=== PATIENT | female | born 1990 | race African-American/Black ===

== ENCOUNTER 2016-03-24 20:07 | Emergency (ER) | payer SELFPAY ==
--- NOTE | 2016-03-24 20:32 | ER Document Report ---
ED Medical Screen (RME) - General Stated Complaint: CHEST PAIN Time seen by provider: 20:30 Mode of Arrival: Ambulatory Information source: Patient Notes: 25-year-old female presents to ED for epigastric pain radiating to back 2 days. Patient states usually goes away but this time. States she's been having urinary frequency with an odor. She states last time she was here she had a UTI. Last menstrual period 03/18/2016 I have greeted and performed a rapid initial assessment of this patient. A comprehensive ED assessment and evaluation of the patient, analysis of test results and completion of medical decision making process will be conducted by an additional ED providers. TRAVEL OUTSIDE OF THE [place] IN LAST 30 DAYS: No - Related Data Allergies/Adverse Reactions: Penicillins Allergy (Verified 01/13/16 07:17) Past Medical History GI Medical History: Reports: Hx Gastroesophageal Reflux Disease Past Surgical History: Reports: Hx Tubal Ligation - Immunizations Immunizations up to date: Yes Hx Diphtheria, Pertussis, Tetanus Vaccination: Yes
[2016-03-24] MEDS ORDERED: ONDANSETRON 4 MG TAB.RAPDIS PO ONE (20:33)
[2016-03-24 20:34] VITALS: BP 114/68
[2016-03-24] MEDS ORDERED: ACETAMINOPHEN 325 MG TABLET ONE (20:39)
[2016-03-24] MEDS ORDERED: ACETAMINOPHEN 325 MG TABLET PO ONE (20:40)
[2016-03-24 21:30] LABS: ABSOLUTE BASOPHILS # (AUTO) 0.1 10^3/uL (0.0-0.2); ABSOLUTE EOSINOPHILS # (AUTO) 0.2 10^3/uL (0.0-0.6); ABSOLUTE LYMPHOCYTES (AUTO) 1.4 10^3/uL (0.5-4.7); ABSOLUTE MONOCYTES (AUTO) 0.6 10^3/uL (0.1-1.4); ABSOLUTE NEUT (AUTO) 6.3 10^3/uL (1.7-8.2); BASOPHILS % (AUTO) 0.6 % (0-2); EOSINOPHILS % (AUTO) 2.6 % (0-6); HEMATOCRIT 33.2 % (36.0-47.0); HEMOGLOBIN 10.3 g/dL (12.0-15.5); HGB HCT DIFFERENCE -2.3; LYMPHOCYTES % (AUTO) 16.4 % (13-45); MEAN CORPUSCULAR HEMOGLOBIN 21.2 pg (27.0-33.4); MEAN CORPUSCULAR HGB CONC 31.2 g/dL (32.0-36.0); MEAN CORPUSCULAR VOLUME 68 fl (80-97); MONOCYTES % (AUTO) 6.7 % (3-13); RED BLOOD COUNT 4.89 10^6/uL (3.72-5.28); RED CELL DISTRIBUTION WIDTH 17.7 % (11.5-14.0); SEGMENTED NEUTROPHILS % (AUTO) 73.7 % (42-78); WHITE BLOOD COUNT 8.6 10^3/uL (4.0-10.5)
[2016-03-24 21:37] LABS: APPEARANCE,URINE SLIGHTLY-CLOUDY; BILIRUBIN,URINE NEGATIVE (NEGATIVE); GLUCOSE, URINE NEGATIVE (NEGATIVE); KETONES,URINE NEGATIVE (NEGATIVE); LEUKOCYTE ESTERASE,URINE TRACE (NEGATIVE); NITRITE,URINE NEGATIVE (NEGATIVE); PROTEIN,URINE NEGATIVE (NEGATIVE); URINE SPECIFIC GRAVITY 1.011; UROBILINOGEN,URINE NEGATIVE mg/dL (<2.0)
[2016-03-24 21:50] LABS: ALANINE AMINOTRANSFERASE 29 U/L (9-52); ALKALINE PHOSPHATASE 76 U/L (38-126); ANION GAP 12 (5-19); ASPARTATE AMINO TRANSFERASE 27 U/L (14-36); BILIRUBIN,TOTAL 0.5 mg/dL (0.2-1.3); BLOOD UREA NITROGEN 13 mg/dL (7-20); CALCIUM 9.5 mg/dL (8.4-10.2); CARBON DIOXIDE 26 mmol/L (22-30); CHLORIDE 103 mmol/L (98-107); CREATININE RESULT 0.96 mg/dL (0.52-1.25); GLUCOSE 85 mg/dL (75-110); LIPASE 48.1 U/L (23-300); POTASSIUM 3.8 mmol/L (3.6-5.0); SODIUM 140.9 mmol/L (137-145); TOTAL PROTEIN 7.6 g/dL (6.3-8.2)
[2016-03-24 22:59] LABS: CHLAM PCR NOT DETECTED (NOT DETECT)
--- NOTE | 2016-03-25 15:17 | EKG REPORT ---
SEVERITY:- BORDERLINE ECG - SINUS TACHYCARDIA VENTRICULAR PREMATURE COMPLEX BORDERLINE T ABNORMALITIES, ANTERIOR LEADS : Confirmed by: Elvira Galindo MD 25-Mar-2016 15:16:15
== END 2016-03-24 21:57 | disposition left against medical advice (07) ==
LOC: ER 20:07
DX: R10.13 Epigastric pain (principal); R35.0 Frequency of micturition; Z87.19 Personal history of other diseases of the digestive system; Z98.51 Tubal ligation status; Z53.20 Procedure and treatment not carried out because of patient's decision for unspecified reasons
CPT/HCPCS: 36415; 80053; 81001; 83690; 84703; 85025; 87491; 87591; 93005; 93010; 99281

== ENCOUNTER 2016-06-11 11:47 | Emergency (ER) | payer SELFPAY ==
--- NOTE | 2016-06-11 12:26 | ER Document Report ---
ED Medical Screen (RME) - General TRAVEL OUTSIDE OF THE [place] IN LAST 30 DAYS: No <DAVIDA ORTEGA - Last Filed: 06/11/16 12:25> <NONA MENA - Last Filed: 06/11/16 13:36> - General Chief Complaint: Flank Pain Stated Complaint: FLANK PAIN Notes: Patient says that she has a feeling that her bladder is full and she is going frequently. She's had this problem off and on for the past couple of years. She was worked up at [facility] in February and diagnosed with lupus nephritis and is to be referred to [facility] for evaluation and care. Patient says she's been having these bladder symptoms for the past couple of days this time. Patient says she's also having severe back pains also. No fever. No vomiting or diarrhea. Patient has had her tubes tied. (DAVIDA ORTEGA) - Related Data Allergies/Adverse Reactions: Penicillins Allergy (Verified 01/13/16 07:17) Past Medical History Renal/ Medical History: Denies: Hx Peritoneal Dialysis GI Medical History: Reports: Hx Gastroesophageal Reflux Disease Past Surgical History: Reports: Hx Tubal Ligation - Immunizations Immunizations up to date: Yes Hx Diphtheria, Pertussis, Tetanus Vaccination: Yes <DAVIDA ORTEGA - Last Filed: 06/11/16 12:25> Course <DAVIDA ORTEGA - Last Filed: 06/11/16 12:25> - Laboratory Result Diagrams: 06/11/16 12:37 06/11/16 12:37 <NONA MENA - Last Filed: 06/11/16 13:36> - Re-evaluation Re-evalutation: 06/11/16 13:34 The urine shows too numerous to count WBCs. Protein is only 30. Patient's history of lupus kidney disease is suspect given the urine protein is only 30, she is not on prednisone or Imuran or any other agent to reduce autoimmune inflammation in the kidneys. Additionally she reports she gets this pain in her kidneys that they give her pain medicine for when she gets the bladder infections. On exam the pain is in the lower lumbar muscles and easily reproduced with palpation of those muscles. She reports she is usually treated with an antibiotic that she takes twice daily , does not know the name of the antibiotic. (NONA MENA) - Vital Signs Vital signs: Temp Pulse Resp BP Pulse Ox 98.3 F 99 16 122/80 99 06/11/16 11:50 06/11/16 11:50 06/11/16 11:50 06/11/16 11:50 06/11/16 11:50 - Laboratory Laboratory results interpreted by me: 06/11/16 06/11/16 12:37 12:37 Hgb 9.5 L Hct 30.0 L MCV 66 L MCH 21.0 L MCHC 31.7 L RDW 18.3 H Urine Protein 30 H Urine Blood MODERATE H Ur Leukocyte Esterase LARGE H
--- NOTE | 2016-06-11 12:38 | ER Document Report ---
ED GI/ - General Mode of Arrival: Ambulatory Information source: Patient TRAVEL OUTSIDE OF THE [place] IN LAST 30 DAYS: No - HPI Patient complains to provider of: Dysuria Onset: Other - Approximately 4 days ago Timing/Duration: Gradual, Persistent Location: Low back Associated symptoms: Dysuria, Radiates to back, Urinary frequency Similar symptoms previously: Yes <MINI ARANGO - Last Filed: 06/11/16 12:49> <NONA MENA - Last Filed: 06/11/16 14:34> - General Chief Complaint: Flank Pain Stated Complaint: FLANK PAIN Notes: Patient is a 25-year-old female presenting to the emergency department concerned of dysuria onset approximately 4 days ago. Patient states she has history of UTIs and kidney infections over the past 2 years. Patient states that doctors normally give her an antibiotic that she takes twice a day and pain killers for her back pain. Patient reports back pain and frequency, but unable to initiate "the stream". Patient also states that she has recently been diagnosed with lupus. (MINI ARANGO) - Related Data Allergies/Adverse Reactions: Penicillins Allergy (Verified 01/13/16 07:17) Past Medical History - General Information source: Patient - Social History Smoking Status: Unknown if Ever Smoked Family History: Reviewed & Not Pertinent, DM Patient has suicidal ideation: No Patient has homicidal ideation: No GI Medical History: Reports: Hx Gastroesophageal Reflux Disease Past Surgical History: Reports: Hx Tubal Ligation - Immunizations Immunizations up to date: Yes Hx Diphtheria, Pertussis, Tetanus Vaccination: Yes <MINI ARANGO - Last Filed: 06/11/16 12:49> <NONA MENA - Last Filed: 06/11/16 14:34> - Medical History Notes: Lupus Dx'd 2017 per Patient (MINI ARANGO) Review of Systems - Review of Systems Constitutional: No symptoms reported EENT: No symptoms reported Cardiovascular: No symptoms reported Respiratory: No symptoms reported Gastrointestinal: No symptoms reported Genitourinary: See HPI, Dysuria, Frequency Female Genitourinary: No symptoms reported Musculoskeletal: See HPI, Back pain - Lower back Skin: No symptoms reported Hematologic/Lymphatic: No symptoms reported Neurological/Psychological: No symptoms reported -: Yes All other systems reviewed and negative <MINI ARANGO - Last Filed: 06/11/16 12:49> Physical Exam - Vital signs Interpretation: Normal - General General appearance: Appears well, Alert - HEENT Head: Normocephalic, Atraumatic Eyes: Normal Pupils: PERRL - Respiratory Respiratory status: No respiratory distress Chest status: Nontender Breath sounds: Normal Chest palpation: Normal - Cardiovascular Rhythm: Regular Heart sounds: Normal auscultation Murmur: No - Abdominal Inspection: Normal Distension: No distension Bowel sounds: Normal Tenderness: Nontender Organomegaly: No organomegaly - Back Back: Tender - Tenderness over lower lumbar and sacral muscles - Extremities General upper extremity: Normal inspection, Nontender General lower extremity: Normal inspection, Nontender - Neurological Neuro grossly intact: Yes Cognition: Normal Schurz Coma Scale Eye Opening: Spontaneous Schurz Coma Scale Verbal: Oriented Schurz Coma Scale Motor: Obeys Commands Schurz Coma Scale Total: 15 Speech: Normal - Psychological Associated symptoms: Normal affect, Normal mood - Skin Skin Temperature: Warm Skin Moisture: Dry Skin Color: Normal <MINI ARANGO - Last Filed: 06/11/16 12:49> Course - Laboratory Result Diagrams: 06/11/16 12:37 06/11/16 12:37 <MINI ARANGO - Last Filed: 06/11/16 12:49> - Laboratory Result Diagrams: 06/11/16 12:37 06/11/16 12:37 <NONA MENA - Last Filed: 06/11/16 14:34> - Vital Signs Vital signs: Temp Pulse Resp BP Pulse Ox 98.3 F 99 16 122/80 99 06/11/16 11:50 06/11/16 11:50 06/11/16 11:50 06/11/16 11:50 06/11/16 11:50 - Laboratory Laboratory results interpreted by ne: 06/11/16 06/11/16 12:37 12:37 Hgb 9.5 L Hct 30.0 L MCV 66 L MCH 21.0 L MCHC 31.7 L RDW 18.3 H Urine Protein 30 H Urine Blood MODERATE H Ur Leukocyte Esterase LARGE H Discharge <MINI ARANGO - Last Filed: 06/11/16 12:49> <NONA MENA - Last Filed: 06/11/16 14:34> - Discharge Clinical Impression: Urinary tract infection Qualifiers: Urinary tract infection type: acute cystitis Hematuria presence: with hematuria Qualified Code(s): N30.01 - Acute cystitis with hematuria Low back pain Qualifiers: Chronicity: acute Back pain laterality: bilateral Sciatica presence: without sciatica Qualified Code(s): M54.5 - Low back pain Condition: Stable Disposition: HOME, SELF-CARE Additional Instructions: Urinary Tract Infection: Your evaluation indicates that you have a urinary tract infection. This is due to germs growing in the bladder. This is a common problem. This infection usually responds quickly to antibiotics. Your antibiotic should be taken exactly as prescribed. Drink plenty of fluids -- three to four quarts a day. Occasionally, a bladder anesthetic will be prescribed to help stop the feeling of urgency until the antibiotic has a chance to clear the infection. This may cause your urine to be dark orange. Certain urine infections require a culture. If the doctor obtained a culture, the results will be back in two days. You should call to see if a change in treatment is needed. A repeat urinalysis after you finish treatment is often recommended. The physician will let you know if further testing is required. Call the doctor if you develop fever, chills, flank pain, inability to urinate, or blood in the urine. Low Back Pain: Three out of every four people will have an episode of disabling back pain during their lifetime. Most commonly the pain is due to straining of the muscles and ligaments in the low back. Usual treatment includes: (1) Rest on a firm surface. Avoid lying on your stomach. (2) Ice pack the painful area. After a few days, gentle heat may be used intermittently to relax the area, or ice packs can be continued. (3) Medication may be needed -- muscle relaxers and antiinflammatory medicines are commonly used. (4) As the back improves, exercises are prescribed to strengthen the back and abdominal muscles. Your doctor will advise you on the proper care for your back at each stage in your recovery. You may be better in a few days -- or healing may take several weeks. If new symptoms of a "herniated disc" (radiation of pain, numbness, or tingling down the back of the leg or weakness in the leg) occur, you should be re-examined. Further testing may be necessary. TAKE THE MEDICATION PRESCRIBED. DRINK PLENTY OF FLUIDS. FOLLOW UP WITH YOUR DOCTOR THIS WEEK IF NOT IMPROVING. RETURN TO THE EMERGENCY ROOM IF ANY NEW OR WORSENING SYMPTOMS. Prescriptions: Ciprofloxacin HCl [Cipro 250 mg Tablet] 1 tab PO BID #10 tab Tramadol HCl 50 mg PO QID PRN #20 tablet PRN Reason: for low back pain Scribe Attestation: 06/11/16 14:34 I personally performed the services described in the documentation, reviewed and edited the documentation which was dictated to the scribe in my presence, and it accurately records my words and actions. (NONA MENA) Scribe Documentation - Scribe Written by Chris:: Mini Arango 06/11/2016 1238 acting as scribe for :: Stanton <MINI ARANGO - Last Filed: 06/11/16 12:49>
[2016-06-11 12:52] LABS: ABSOLUTE BASOPHILS # (AUTO) 0.1 10^3/uL (0.0-0.2); ABSOLUTE EOSINOPHILS # (AUTO) 0.2 10^3/uL (0.0-0.6); ABSOLUTE LYMPHOCYTES (AUTO) 1.9 10^3/uL (0.5-4.7); ABSOLUTE MONOCYTES (AUTO) 0.5 10^3/uL (0.1-1.4); ABSOLUTE NEUT (AUTO) 6.9 10^3/uL (1.7-8.2); BASOPHILS % (AUTO) 0.6 % (0-2); EOSINOPHILS % (AUTO) 1.9 % (0-6); HEMOGLOBIN 9.5 g/dL (12.0-15.5); HGB HCT DIFFERENCE -1.5; LYMPHOCYTES % (AUTO) 19.4 % (13-45); MEAN CORPUSCULAR HGB CONC 31.7 g/dL (32.0-36.0); MEAN CORPUSCULAR VOLUME 66 fl (80-97); MONOCYTES % (AUTO) 5.7 % (3-13); RED BLOOD COUNT 4.53 10^6/uL (3.72-5.28); RED CELL DISTRIBUTION WIDTH 18.3 % (11.5-14.0); SEGMENTED NEUTROPHILS % (AUTO) 72.4 % (42-78); WHITE BLOOD COUNT 9.6 10^3/uL (4.0-10.5)
[2016-06-11 12:59] LABS: AMORPHOUS SEDIMENT,URINE TRACE /HPF; APPEARANCE,URINE CLOUDY; BILIRUBIN,URINE NEGATIVE (NEGATIVE); GLUCOSE, URINE NEGATIVE (NEGATIVE); KETONES,URINE NEGATIVE (NEGATIVE); LEUKOCYTE ESTERASE,URINE LARGE (NEGATIVE); NITRITE,URINE NEGATIVE (NEGATIVE); PROTEIN,URINE 30 mg/dL (NEGATIVE); URINE SPECIFIC GRAVITY 1.015; UROBILINOGEN,URINE NEGATIVE mg/dL (<2.0)
[2016-06-11 13:46] LABS: ALANINE AMINOTRANSFERASE 27 U/L (9-52); ALBUMIN 4.3 g/dL (3.5-5.0); ALKALINE PHOSPHATASE 78 U/L (38-126); ANION GAP 11 (5-19); ASPARTATE AMINO TRANSFERASE 20 U/L (14-36); BILIRUBIN,DIRECT 0.3 mg/dL (0.0-0.4); BILIRUBIN,TOTAL 0.8 mg/dL (0.2-1.3); BLOOD UREA NITROGEN 14 mg/dL (7-20); CALCIUM 9.5 mg/dL (8.4-10.2); CARBON DIOXIDE 25 mmol/L (22-30); CHLORIDE 106 mmol/L (98-107); CREATININE RESULT 0.73 mg/dL (0.52-1.25); GLUCOSE 101 mg/dL (75-110); POTASSIUM 3.9 mmol/L (3.6-5.0); SODIUM 141.9 mmol/L (137-145); TOTAL PROTEIN 7.5 g/dL (6.3-8.2)
[2016-06-11] MEDS ORDERED: CIPROFLOXACIN HCL 500 MG TABLET PO ONE (14:12)
[2016-06-11] MEDS ORDERED: HYDROCODONE/ACETAMINOPHEN 5-325 MG TABLET PO ONE (14:12)
[2016-06-11] MEDS ORDERED: PHENAZOPYRIDINE HCL 200 MG TABLET PO ONE (14:31)
[2016-06-11 14:47] VITALS: BP 123/79
== END 2016-06-11 14:47 | disposition home or self-care (01) ==
LOC: ER 11:47
DX: N30.01 Acute cystitis with hematuria (principal); M54.5 Low back pain; R30.0 Dysuria; R35.0 Frequency of micturition; Z88.0 Allergy status to penicillin
CPT/HCPCS: 99283; 36415; 87086; 83690; 85025; 81025; 80053; 81001; J3490

== ENCOUNTER 2016-09-29 23:45 | Emergency (ER) | payer SELFPAY ==
[2016-09-30] MEDS ORDERED: NORMAL SALINE 1000 ML 1,000 ML IV ONE (00:50)
[2016-09-30] MEDS ORDERED: ONDANSETRON HCL INJ/PF 4 MG/2 ML SDV IV ONE (00:50)
[2016-09-30] MEDS ORDERED: LIDOCAINE 2% VISCOUS SOLN 20 ML UDCUP PO ONE (00:58)
[2016-09-30] MEDS ORDERED: FAMOTIDINE 20 MG TABLET PO ONE (00:58)
[2016-09-30] MEDS ORDERED: METOCLOPRAMIDE HCL ORAL SOLN 10 MG/10 ML UDCUP PO ONE (00:58)
[2016-09-30] MEDS ORDERED: MAG HYDROX/AL HYDROX/SIMETH SUSP 30 ML UDCUP PO ONE (00:58)
--- NOTE | 2016-09-30 00:59 | ER Document Report ---
ED General - General Chief Complaint: Epigastric Pain Stated Complaint: BREATHING DIFFICULTY Time Seen by Provider: 09/30/16 00:24 Notes: Patient is a 25-year-old female with past medical history of lupus, gastroesophageal reflux disease who presents with multiple episodes of vomiting and epigastric abdominal pain approximately 4 hours after eating sushi. Her sister who is at the bedside at the exact same food as her did not have similar reaction. Patient states that her epigastric abdominal pain with a dull, aching , throbbing pain that is mostly resolved at this time. That pain did start after she had approximately 4 episodes of nonbilious vomiting. Denies a history of similar symptoms in the past. She has not seen her primary care doctor regarding today's concerns. Nothing improves or worsens her symptoms. TRAVEL OUTSIDE OF THE [place] IN LAST 30 DAYS: No - Related Data Allergies/Adverse Reactions: Penicillins Allergy (Verified 09/30/16 00:00) Past Medical History - General Information source: Patient - Social History Smoking Status: Never Smoker Frequency of alcohol use: None Drug Abuse: None Lives with: Spouse/Significant other Family History: Reviewed & Not Pertinent, DM Patient has suicidal ideation: No Patient has homicidal ideation: No Renal/ Medical History: Denies: Hx Peritoneal Dialysis GI Medical History: Reports: Hx Gastroesophageal Reflux Disease Past Surgical History: Reports: Hx Tubal Ligation - Immunizations Immunizations up to date: Yes Hx Diphtheria, Pertussis, Tetanus Vaccination: Yes Review of Systems - Review of Systems Notes: Constitutional: Negative for fever. HENT: Negative for sore throat. Eyes: Negative for visual changes. Cardiovascular: Negative for chest pain. Respiratory: Negative for shortness of breath. Gastrointestinal: Positive for epigastric abdominal pain and vomiting Genitourinary: Negative for dysuria. Musculoskeletal: Negative for back pain. Skin: Negative for rash. Neurological: Negative for headaches, weakness or numbness. 10 point ROS negative except as marked above and in HPI. Physical Exam - Vital signs Vitals: Temp Pulse Resp BP Pulse Ox 98 F 78 20 128/81 H 100 09/29/16 23:56 09/29/16 23:56 09/29/16 23:56 09/29/16 23:56 09/29/16 23:56 Interpretation: Normal Notes: PHYSICAL EXAMINATION: GENERAL: Well-appearing, well-nourished and in no acute distress. HEAD: Atraumatic, normocephalic. EYES: Pupils equal round and reactive to light, extraocular movements intact, sclera anicteric, conjunctiva are normal. ENT: nares patent, oropharynx clear without exudates. Moderately dry mucous membranes. NECK: Normal range of motion, supple without lymphadenopathy LUNGS: Breath sounds clear to auscultation bilaterally and equal. No wheezes rales or rhonchi. HEART: Regular rate and rhythm without murmurs ABDOMEN: Soft, mild epigastric abdominal tenderness to palpation otherwise no focal tenderness, normoactive bowel sounds. No guarding, no rebound. No masses appreciated. EXTREMITIES: Normal range of motion, no pitting or edema. No cyanosis. NEUROLOGICAL: No focal neurological deficits. Moves all extremities spontaneously and on command. PSYCH: Normal mood, normal affect. SKIN: Warm, Dry, normal turgor, no rashes or lesions noted. Course - Re-evaluation Re-evalutation: 09/30/16 00:58 Patient presents with epigastric abdominal pain with associated vomiting after eating sushi. Patient states that the pain did start after 4 episodes of vomiting. Patient has no focal abdominal tenderness on examination. Lipase is normal. No LFT changes. Based on history and exam, I do not suspect ACS, pulmonary embolus, SBO, mesenteric ischemia, acute pancreatitis, biliary pathology, or an abdominal aortic dissection. Patient has had improvement of symptoms here with a GI cocktail. At this time will discharge with return precautions and follow-up recommendations. Verbal discharge instructions given a the bedside and opportunity for questions given. Medication warnings reviewed. Patient is in agreement with this plan and has verbalized understanding of return precautions and the need for primary care follow-up in the next 24-72 hours. - Vital Signs Vital signs: Temp Pulse Resp BP Pulse Ox 98 F 78 20 128/81 H 100 09/29/16 23:56 09/29/16 23:56 09/29/16 23:56 09/29/16 23:56 09/29/16 23:56 - Laboratory Result Diagrams: 09/30/16 00:43 Laboratory results interpreted by me: 09/30/16 00:43 Potassium 3.5 L Chloride 109 H Discharge - Discharge Clinical Impression: Epigastric abdominal pain Vomiting Qualifiers: Vomiting type: unspecified Vomiting Intractability: non-intractable Nausea presence: with nausea Qualified Code(s): R11.2 - Nausea with vomiting, unspecified Condition: Good Disposition: HOME, SELF-CARE Additional Instructions: You have been seen in the Emergency Department (ED) today for nausea and vomiting. Your work up today has not shown a clear cause for your symptoms. You have been prescribed Zofran; please use as prescribed as needed for your nausea. Follow up with your doctor as soon as possible regarding today's emergent visit and your symptoms of nausea. Return to the Emergency Department (ED) if you develop abdominal pain, bloody vomiting, bloody diarrhea, if you are unable to tolerate fluids due to vomiting , or if you develop other symptoms that concern you.
[2016-09-30 01:20] LABS: ALANINE AMINOTRANSFERASE 37 U/L (9-52); ALBUMIN 4.2 g/dL (3.5-5.0); ALKALINE PHOSPHATASE 89 U/L (38-126); ANION GAP 11 (5-19); ASPARTATE AMINO TRANSFERASE 20 U/L (14-36); BILIRUBIN,DIRECT 0.3 mg/dL (0.0-0.4); BILIRUBIN,TOTAL 0.4 mg/dL (0.2-1.3); BLOOD UREA NITROGEN 11 mg/dL (7-20); CALCIUM 9.3 mg/dL (8.4-10.2); CARBON DIOXIDE 22 mmol/L (22-30); CHLORIDE 109 mmol/L (98-107); CREATININE RESULT 0.78 mg/dL (0.52-1.25); GLUCOSE 96 mg/dL (75-110); POTASSIUM 3.5 mmol/L (3.6-5.0); SODIUM 141.7 mmol/L (137-145); TOTAL PROTEIN 7.5 g/dL (6.3-8.2)
[2016-09-30] MEDS ORDERED: ONDANSETRON ODT 4 MG TAB (6 TAB/DSPK) PO PRN (01:52)
[2016-09-30 02:23] VITALS: BP 122/90
--- NOTE | 2016-09-30 09:56 | EKG REPORT ---
SEVERITY:- NORMAL ECG - SINUS RHYTHM : Confirmed by: Devonte Layton MD 30-Sep-2016 09:55:53
== END 2016-09-30 02:09 | disposition home or self-care (01) ==
LOC: ER 23:45
DX: R10.13 Epigastric pain (principal); R11.2 Nausea with vomiting, unspecified; Z88.0 Allergy status to penicillin; Z87.19 Personal history of other diseases of the digestive system; Z98.51 Tubal ligation status
CPT/HCPCS: 93005; 99284; 96361; 96374; 36415; 83690; 84703; 80053; 93010; J3490; J2405; J7030

== ENCOUNTER 2016-11-22 21:52 | Emergency (ER) | payer SELFPAY ==
[2016-11-22 22:25] VITALS: BP 107/67
== END 2016-11-22 23:00 | disposition left against medical advice (07) ==
LOC: ER 21:52
DX: Z53.21 Procedure and treatment not carried out due to patient leaving prior to being seen by health care provider (principal)

== ENCOUNTER 2017-01-23 13:50 | Observation (INO) | payer MEDICAID ==
[~2017-01-23 13:50] MED LIST: SUCCINYLCHOLINE CHLORIDE INJ 200 MG/10 ML VIAL ONE
[2017-01-23] MEDS ORDERED: NORMAL SALINE 1000 ML 1,000 ML IV ONE (15:07)
[2017-01-23] MEDS ORDERED: MORPHINE SULFATE 10 MG/ML INJ IV ONE ×2 (15:09→18:26)
--- NOTE | 2017-01-23 15:13 | ER Document Report ---
HPI - HPI Patient complains to provider of: Perirectal abscess Onset: Other - 5 days Onset/Duration: Worse Quality of pain: Sharp Pain Level: 4 Context: Patient states that she thought initially that she might have a hemorrhoid she was having pain in the rectal area. Patient was treating with [id number] hemorrhoid creams and Tucks pads. Patient states a family member advised her that she may have an abscess. Patient does report subjective fevers at home. Patient reports some constipation with last bowel movement 3 days ago. Patient complains of rectal pain with standing or sitting. Associated Symptoms: Fever, Other - Rectal tenderness Exacerbated by: Sitting, Standing, Movement, Walking Relieved by: Denies Similar symptoms previously: No Recently seen / treated by doctor: No - ROS ROS below otherwise negative: Yes Systems Reviewed and Negative: Yes All other systems reviewed and negative - CONSTITUTIONAL Constitutional: REPORTS: Fever, Chills - REPRODUCTIVE Reproductive: DENIES: : - DERM Skin Color: Normal Notes: abscess Past Medical History - General Information source: Patient - Social History Smoking Status: Current Some Day Smoker Smoking Education Provided: Yes Frequency of alcohol use: None Drug Abuse: None Occupation: none Lives with: Family Family History: Reviewed & Not Pertinent, DM Patient has suicidal ideation: No Patient has homicidal ideation: No - Medical History Medical History: Other - lupus Renal/ Medical History: Denies: Hx Peritoneal Dialysis GI Medical History: Reports: Hx Gastroesophageal Reflux Disease Past Surgical History: Reports: Hx Tubal Ligation - Immunizations Immunizations up to date: Yes Hx Diphtheria, Pertussis, Tetanus Vaccination: Yes Vertical Provider Document - CONSTITUTIONAL Agree With Documented VS: Yes Exam Limitations: No Limitations General Appearance: WD/WN, No Apparent Distress - INFECTION CONTROL TRAVEL OUTSIDE OF THE [place] IN LAST 30 DAYS: No - HEENT HEENT: Atraumatic, Normocephalic - NECK Neck: Normal Inspection, Supple - RESPIRATORY Respiratory: Breath Sounds Normal, No Respiratory Distress O2 Sat by Pulse Oximetry: 100 - CARDIOVASCULAR Cardiovascular: Regular Rhythm, No Murmur, Tachycardia - GI/ABDOMEN Notes: Patient with perianal abscess, 1.5 cm subtle swelling to the perianal area that is mildly erythematous and exquisitely tender with palpation. - BACK Back: Normal Inspection - MUSCULOSKELETAL/EXTREMETIES Musculoskeletal/Extremeties: MAEW - NEURO Level of Consciousness: Awake, Alert, Appropriate Motor/Sensory: No Motor Deficit - DERM Integumentary: Warm, Dry Course - Re-evaluation Re-evalutation: 01/23/17 15:09 dr hernandes consulted and agrees to evaluate pt 01/23/17 15:32 Dr. Hernandes to bedside for exam, recommends giving patient IV Cipro and will plan to take patient to the operating room for drainage of perianal abscess. 01/23/17 16:34 Patient complains of epigastric tenderness. Patient advised that she needs to remain n.p.o., additional medication ordered. RN advised the patient's pain complaints so that they may relate this to the surgeon. - Vital Signs Vital signs: Temp Pulse Resp BP Pulse Ox 98.1 F 123 H 20 132/75 H 100 01/23/17 13:53 01/23/17 13:53 01/23/17 13:53 01/23/17 13:53 01/23/17 13:53 - Laboratory Result Diagrams: 01/23/17 15:39 01/23/17 15:39 Laboratory results interpreted by me: 01/23/17 16:56 Labs- Entire Visit 01/23/17 01/23/17 01/23/17 15:39 15:39 15:39 WBC 12.7 H RBC 4.77 Hgb 9.8 L Hct 30.8 L MCV 65 L MCH 20.4 L MCHC 31.6 L RDW 18.4 H Plt Count 317 Seg Neutrophils % 81.0 H Lymphocytes % 13.2 Monocytes % 3.9 Eosinophils % 1.6 Basophils % 0.3 Absolute Neutrophils 10.3 H Absolute Lymphocytes 1.7 Absolute Monocytes 0.5 Absolute Eosinophils 0.2 Absolute Basophils 0.0 Large Platelets PRESENT Platelet Comment ADEQUATE Polychromasia SLIGHT Hypochromasia 1+ Poikilocytosis 1+ Anisocytosis 1+ Microcytosis 3+ Tear Drop Cells SLIGHT Ovalocytes 1+ Schistocytes SLIGHT Sodium 143.3 Potassium 4.2 Chloride 106 Carbon Dioxide 23 Anion Gap 14 BUN 14 Creatinine 0.74 Est GFR ( Amer) > 60 Est GFR (Non-Af Amer) > 60 Glucose 81 Calcium 9.9 Total Bilirubin 0.4 Direct Bilirubin 0.3 Neonat Total Bilirubin Not Reportable Neonat Direct Bilirubin Not Reportable Neonat Indirect Bili Not Reportable AST 24 ALT 31 Alkaline Phosphatase 100 Total Protein 7.7 Albumin 4.6 Serum HCG, Qual NEGATIVE Discharge - Discharge Clinical Impression: Perianal abscess Condition: Stable Disposition: ADMITTED OBSERVATION Admitting Provider: Surgicalist Unit Admitted: Medical Floor
[2017-01-23] MEDS ORDERED: CIPROFLOXACIN 400 MG/D5W RTU 400 MG/200 ML RTUPB IV ONE (15:30)
[2017-01-23 16:07] LABS: ABSOLUTE EOSINOPHILS # (AUTO) 0.2 10^3/uL (0.0-0.6); ABSOLUTE LYMPHOCYTES (AUTO) 1.7 10^3/uL (0.5-4.7); ABSOLUTE MONOCYTES (AUTO) 0.5 10^3/uL (0.1-1.4); ABSOLUTE NEUT (AUTO) 10.3 10^3/uL (1.7-8.2); BASOPHILS % (AUTO) 0.3 % (0-2); EOSINOPHILS % (AUTO) 1.6 % (0-6); HEMATOCRIT 30.8 % (36.0-47.0); HEMOGLOBIN 9.8 g/dL (12.0-15.5); HGB HCT DIFFERENCE -1.4; LYMPHOCYTES % (AUTO) 13.2 % (13-45); MEAN CORPUSCULAR HEMOGLOBIN 20.4 pg (27.0-33.4); MEAN CORPUSCULAR HGB CONC 31.6 g/dL (32.0-36.0); MONOCYTES % (AUTO) 3.9 % (3-13); RED BLOOD COUNT 4.77 10^6/uL (3.72-5.28); RED CELL DISTRIBUTION WIDTH 18.4 % (11.5-14.0); WHITE BLOOD COUNT 12.7 10^3/uL (4.0-10.5)
--- NOTE | 2017-01-23 16:18 | HISTORY AND PHYSICAL E ---
History and Physical NAME: MINI OLIVER : 1990 AGE: 26Y ADMITTED: 01/23/2017 ROOM: ED36 CHIEF COMPLAINT: Left perirectal pains. HISTORY OF PRESENT ILLNESS: This is a 26-year-old female complaining of pains along the left perirectal area for the past 5 days. Initially, she thought it was just hemorrhoids and then went to the Emergency Room today where she was noted to have swelling and tenderness at the left perianal area, most likely developing into an abscess. The patient denies any nausea, vomiting. The patient claims she has been constipated most of her life. She has some anorexia since Sunday. Denies any fever nor chills. PAST MEDICAL HISTORY: Diagnosed to have lupus nephritis about a year ago, but not on any medications. She said her urine had protein and some white blood cells. PAST SURGICAL HISTORY: Unremarkable. SOCIAL HISTORY: Smokes a pack a day. Denies alcohol or drug use. ALLERGIES: PENICILLIN. FAMILY HISTORY: Both parents are alive and well. An aunt has a history of lupus. REVIEW OF SYSTEMS: As in HPI. Denies any weight loss, diarrhea. Positive for constipation. No chest pain, shortness of breath, cough. Admits to having occasional dizziness. Has been constipated most of her life according to her. Denies any easy bruisability or lymphadenopathy. No visual or hearing problems. Rest of the systems are unremarkable. GI as in HPI. PHYSICAL EXAMINATION: GENERAL: Well-developed, well-nourished 26-year-old female, alert and oriented, complaining of left perirectal pains. HEENT: Neck is supple. No thyromegaly. LUNGS: Clear. HEART: Regular sinus rhythm. ABDOMEN: Soft, nontender. EXTREMITIES: No edema. RECTAL EXAM: The patient has reddish swollen swelling with marked tenderness in the left perirectal area. IMPRESSION: Left perirectal abscess, possible fistula in ano. PLAN: 1. Patient to keep n.p.o. and start IV fluids. 2. Start IV antibiotics with Cipro. 3. Patient for incision and drainage of perirectal abscess, possible fistulotomy. DICTATING PHYSICIAN: MANA JUAREZ M.D. [id number] PHY#: [id number] ID: [id number] JOB#: [id number] ACCT: [id number] cc:Junior VEGAS MD
[2017-01-23 16:30] LABS: ALANINE AMINOTRANSFERASE 31 U/L (9-52); ALBUMIN 4.6 g/dL (3.5-5.0); ALKALINE PHOSPHATASE 100 U/L (38-126); ANION GAP 14 (5-19); ASPARTATE AMINO TRANSFERASE 24 U/L (14-36); BILIRUBIN,DIRECT 0.3 mg/dL (0.0-0.4); BILIRUBIN,TOTAL 0.4 mg/dL (0.2-1.3); BLOOD UREA NITROGEN 14 mg/dL (7-20); CALCIUM 9.9 mg/dL (8.4-10.2); CARBON DIOXIDE 23 mmol/L (22-30); CHLORIDE 106 mmol/L (98-107); CREATININE RESULT 0.74 mg/dL (0.52-1.25); GLUCOSE 81 mg/dL (75-110); POTASSIUM 4.2 mmol/L (3.6-5.0); SODIUM 143.3 mmol/L (137-145); TOTAL PROTEIN 7.7 g/dL (6.3-8.2)
[2017-01-23 16:32] LABS: ANISOCYTOSIS 1+; HYPOCHROMASIA 1+; MICROCYTOSIS 3+; OVALOCYTES 1+; POIKILOCYTOSIS 1+; POLYCHROMASIA SLIGHT; SCHISTOCYTES SLIGHT; TEAR DROP CELLS SLIGHT
[2017-01-23 16:33] LABS: MEAN CORPUSCULAR VOLUME 65 fl (80-97)
[2017-01-23] MEDS ORDERED: FAMOTIDINE INJ/PF 20 MG/2 ML SDV IV ONE (16:34)
[2017-01-23] MEDS ORDERED: NORMAL SALINE 1000 ML 1,000 ML IV PRN ×2 (20:04→22:59)
[2017-01-23] MEDS ORDERED: INFLUENZA ADLT QUAD (36MOS+) 2017-18 VAC 0.5 ML SYR IM PRN (20:23)
[2017-01-23] MEDS ORDERED: HYDROMORPHONE HCL INJ/PF 2 MG/ML AMPULE IV ONE (21:45)
[2017-01-23] MEDS ORDERED: ACETAMINOPHEN 100 ML IV ONE (22:07)
[2017-01-23] MEDS ORDERED: FENTANYL CITRATE INJ/PF 100 MCG/2 ML AMPUL ONE (22:07)
[2017-01-23] MEDS ORDERED: PROPOFOL INJ 200 MG/20 ML VIAL IV ONE (22:07)
[2017-01-23] MEDS ORDERED: MIDAZOLAM 2 MG/2 ML INJ ONE (22:07)
[2017-01-23] MEDS ORDERED: LIDOCAINE 0.5% INJ-PF (5 MG/ML) 50 ML SDV ONE (22:12)
[2017-01-23] MEDS ORDERED: PROMETHAZINE HCL INJ 25 MG/1 ML VIAL IV PRN ×2 (23:00)
[2017-01-23] MEDS ORDERED: FENTANYL CITRATE INJ/PF 100 MCG/2 ML AMPUL IV PRN ×3 (23:00)
[2017-01-23] MEDS ORDERED: OXYCODONE-ACETAMINOPHEN 5-325 MG TABLET PO PRN ×2 (23:00)
[2017-01-23] MEDS ORDERED: DIPHENHYDRAMINE HCL 50 MG/ML VIAL IV PRN (23:00)
[2017-01-23] MEDS ORDERED: MEPERIDINE HCL/PF INJ 25 MG/1 ML DISP.SYRIN IV PRN (23:00)
[2017-01-23] MEDS ORDERED: MORPHINE SULFATE 10 MG/ML INJ IV PRN (23:00)
[2017-01-23] MEDS ORDERED: METRONIDAZOLE 500 MG/NS RTU 250 MG in CONTAINER,EMPTY 1 EACH IV SCH (23:15)
[2017-01-23] MEDS ORDERED: METRONIDAZOLE 500 MG/NS RTU 250 MG in CONTAINER,EMPTY 1 EACH IV ONE (23:30)
--- NOTE | 2017-01-23 23:33 | OPERATIVE REPORT E ---
Operative Report NAME: MINI OLIVER : 1990 AGE: 26Y DATE OF SURGERY: 01/23/2017 ROOM: 208 PREOPERATIVE DIAGNOSIS: Left perianal abscess. POSTOPERATIVE DIAGNOSIS: Left perianal abscess. OPERATION: Incision and drainage of left perianal abscess. SURGEON: MANA JUAREZ M.D. ANESTHESIA: Local MAC. INDICATION: This is a 26-year-old female complaining of pain in left perianal area for the past week. She initially thought it was hemorrhoids but she went to the emergency room today because of increasing pains. She was noted to have a bulging at the left perianal area with obvious abscess. The patient was given IV antibiotics in the ER. DESCRIPTION OF PROCEDURE: After adequate general anesthesia, the patient was placed in the lithotomy position and the perineal area prepped and draped in the usual sterile fashion. Xylocaine 1% was injected over the palpated swelling on the left perianal area. A 1 cm incision was then made and a gush of yellowish drainage noted. Cultures were then obtained. The abscess defect was then probed with a hemostat and enlarged bluntly. Further palpation of the cavity was then performed with the index finger and no other areas of tunneling noted. No evidence of fistula in the rectal mucosa noted and primarily with palpation. The abscess appears to be around internal and external sphincter. No further pus could be extruded by pressing pressure through the rectal mucosa towards the sphincter muscles, though the sphincter muscles appear to be a little bit more prominent compared to the right side. At any rate, the area was then irrigated with saline solution. The area was subsequently packed with 1/4 inch Iodoform gauze. Sterile dressings placed over the operative site. Needle, instruments and sponge counts were all correct. Estimated blood loss about 20 mL. Patient then brought to the recovery room in satisfactory condition. DICTATING PHYSICIAN: MANA JUAREZ M.D. [id number] PHY#: [id number] ID: [id number] JOB#: [id number] ACCT: [id number] cc:MANA JUAREZ M.D. >
[2017-01-24] MEDS: ONDANSETRON HCL INJ/PF 4 MG/2 ML SDV IV PRN ×3 (00:23→12:07)
[2017-01-24] MEDS ORDERED: METRONIDAZOLE 500 MG/NS RTU 200 ML IV ONE (01:10)
[2017-01-24] MEDS: METRONIDAZOLE 500 MG/NS RTU 100 ML IV SCH ×3 (02:08→17:50)
[2017-01-24] MEDS: HYDROMORPHONE HCL INJ/PF 2 MG/ML AMPULE IV PRN ×3 (05:42→17:50)
[2017-01-24] MEDS ORDERED: METRONIDAZOLE 500 MG/NS RTU 250 MG in CONTAINER,EMPTY 1 EACH IV SCH (06:00)
[2017-01-24] MEDS ORDERED: CIPROFLOXACIN 400 MG/D5W RTU 400 MG/200 ML RTUPB IV SCH (10:00)
[2017-01-24 14:39] LABS: PATH REVIEW PATHOLOGIST REVIEWED
[2017-01-24] MEDS ORDERED: DIPHENHYDRAMINE HCL 50 MG/ML VIAL INJ ONE (14:45)
[2017-01-24] MEDS ORDERED: FLUCONAZOLE 100 MG TABLET PO ONE (19:00)
[2017-01-24 19:15] VITALS: BP 97/68
--- NOTE | 2017-01-24 20:03 | DISCHARGE SUMMARY E ---
Discharge Summary NAME: MINI OLIVER : 1990 AGE: 26Y ADMITTED: 01/23/2017 DISCHARGED: 01/24/2017 FINAL DIAGNOSIS: Left perianal abscess. PROCEDURE DONE: Incision and drainage of left perianal abscess 01/23/17, surgeon Dr. Hernandes. HOSPITAL COURSE: This is a 26-year-old female who has been complaining of pains along the left perianal area for about 5 days, and was noted to have an abscess and this was eventually drained in the OR on 01/23/17. A packing was placed. The patient started on IV antibiotics. The packing was removed on 01/24/17 and a light packing placed. Minimal drainage noted. The packing will be removed in the surgical clinic this Sunday01/26/2017. IN the meantime the patient claims she has some whitish vaginal discharge, likely yeast infection and she was given a dose of Diflucan 200 mg p.o. 1 time. The patient also given a prescription for Percocet 5/325 mg 1 every 6 hours p.r.n. for pain for a total of 12 pills and Cipro 500 mg p.o. b.i.d. for about 5 days. DICTATING PHYSICIAN: MANA HERNANDES M.D. [id number] PHY#: [id number] ID: [id number] JOB#: [id number] ACCT: [id number] cc:MANA HERNANDES M.D. >
== END 2017-01-24 20:05 | disposition home or self-care (01) ==
LOC: ER 13:50 → EH 15:43 → 2N 19:45
PROVIDERS: ATTEND Surgery
PROC: 0D9Q0ZX Drainage of Anus, Open Approach, Diagnostic (ICD-10-PCS; principal; 2017-01-23 19:00)
DX: K61.0 Anal abscess (principal); N89.8 Other specified noninflammatory disorders of vagina; R63.0 Anorexia; M32.14 Glomerular disease in systemic lupus erythematosus; F17.210 Nicotine dependence, cigarettes, uncomplicated; K59.00 Constipation, unspecified
CPT/HCPCS: 96376; 99284; 96375; 96365; 36415; 87040; 87070; 87205; 84703; 85025; 87075; 87077; 80053; 87186; 46050; G0378 ×2; A6266 ×2; J2250; J3010; J3490; J2270; J1170; J0330; J2405; J7030; J2704; J0744 ×2; S0028; J0131; 902

== ENCOUNTER 2017-08-13 16:21 | Emergency (ER) | payer SELFPAY | END 2017-08-13 19:23 | disposition left against medical advice (07) | LOC: ER 16:21 | DX: Z53.21 Procedure and treatment not carried out due to patient leaving prior to being seen by health care provider (principal) ==

== ENCOUNTER 2017-09-01 23:35 | Emergency (ER) | payer SELFPAY ==
[2017-09-01 23:47] VITALS: BP 121/82
[2017-09-02 01:10] LABS: ABSOLUTE EOSINOPHILS # (AUTO) 0.2 10^3/uL (0.0-0.6); ABSOLUTE LYMPHOCYTES (AUTO) 2.4 10^3/uL (0.5-4.7); ABSOLUTE MONOCYTES (AUTO) 0.5 10^3/uL (0.1-1.4); ABSOLUTE NEUT (AUTO) 8.6 10^3/uL (1.7-8.2); BASOPHILS % (AUTO) 0.4 % (0-2); EOSINOPHILS % (AUTO) 1.9 % (0-6); HEMOGLOBIN 10.5 g/dL (12.0-15.5); LYMPHOCYTES % (AUTO) 20.2 % (13-45); MEAN CORPUSCULAR HGB CONC 31.7 g/dL (32.0-36.0); MEAN CORPUSCULAR VOLUME 66 fl (80-97); MONOCYTES % (AUTO) 4.4 % (3-13); PLATELET COUNT 302 10^3/uL (150-450); RED BLOOD COUNT 4.98 10^6/uL (3.72-5.28); RED CELL DISTRIBUTION WIDTH 19.2 % (11.5-14.0); SEGMENTED NEUTROPHILS % (AUTO) 73.1 % (42-78); TOTAL CELLS COUNTED % (AUTO) 100 %; WHITE BLOOD COUNT 11.7 10^3/uL (4.0-10.5)
[2017-09-02 01:26] LABS: ALANINE AMINOTRANSFERASE 28 U/L (9-52); ALBUMIN 4.4 g/dL (3.5-5.0); ALKALINE PHOSPHATASE 91 U/L (38-126); ANION GAP 10 (5-19); ASPARTATE AMINO TRANSFERASE 25 U/L (14-36); BILIRUBIN,DIRECT 0.3 mg/dL (0.0-0.4); BILIRUBIN,TOTAL 0.3 mg/dL (0.2-1.3); BLOOD UREA NITROGEN 12 mg/dL (7-20); CALCIUM 9.5 mg/dL (8.4-10.2); CARBON DIOXIDE 23 mmol/L (22-30); CHLORIDE 108 mmol/L (98-107); GLUCOSE 99 mg/dL (75-110); LIPASE 38.2 U/L (23-300); POTASSIUM 4.3 mmol/L (3.6-5.0); SODIUM 140.7 mmol/L (137-145); TOTAL PROTEIN 8.3 g/dL (6.3-8.2)
[2017-09-02] MEDS ORDERED: KETOROLAC TROMETHAMINE 60 MG/2 ML SDV IM ONE (01:27)
--- NOTE | 2017-09-02 01:28 | ER Document Report ---
ED General - General Chief Complaint: Abdominal Pain Stated Complaint: ABDOMINAL PAIN Time Seen by Provider: 09/02/17 00:01 Notes: Patient is a 26-year-old female with a past medical history of lupus not currently warranting any treatment, prior surgical history of tubal ligation who presents with 2-3 days of intermittent lower abdominal cramping. She describes this as an intermittent, cramping, moderate to severe pain. Nothing improves or worsens this pain. She states that this does feel somewhat similar to prior menstrual period cramps that she has had in the past which have been much more intense and she had a tubal ligation several years ago. She denies any vaginal bleeding or vaginal discharge. No dysuria. No fever or constitutional symptoms. She has not seen her general doctor regarding today's concerns. TRAVEL OUTSIDE OF THE [place] IN LAST 30 DAYS: No - Related Data Allergies/Adverse Reactions: Penicillins Allergy (Verified 01/23/17 13:53) Past Medical History - General Information source: Patient - Social History Smoking Status: Current Every Day Smoker Chew tobacco use (# tins/day): No Frequency of alcohol use: Social Drug Abuse: None Lives with: Spouse/Significant other Family History: Reviewed & Not Pertinent, DM Patient has suicidal ideation: No Patient has homicidal ideation: No Neurological Medical History: Reports: Hx Migraine Renal/ Medical History: Denies: Hx Peritoneal Dialysis GI Medical History: Reports: Hx Gastroesophageal Reflux Disease Musculoskeltal Medical History: Reports Hx Arthritis - RA Psychiatric Medical History: Reports: Hx Bipolar Disorder, Hx Depression - gestational Past Surgical History: Reports: Hx Tubal Ligation - Immunizations Immunizations up to date: Yes Hx Diphtheria, Pertussis, Tetanus Vaccination: Yes Review of Systems - Review of Systems Notes: Constitutional: Negative for fever. HENT: Negative for sore throat. Eyes: Negative for visual changes. Cardiovascular: Negative for chest pain. Respiratory: Negative for shortness of breath. Gastrointestinal: Positive for lower abdominal pain Genitourinary: Negative for dysuria. Musculoskeletal: Negative for back pain. Skin: Negative for rash. Neurological: Negative for headaches, weakness or numbness. 10 point ROS negative except as marked above and in HPI. Physical Exam - Vital signs Vitals: Temp Pulse Resp BP Pulse Ox 98.1 F 103 H 18 121/82 100 09/01/17 23:45 09/01/17 23:45 09/01/17 23:45 09/01/17 23:45 09/01/17 23:45 Interpretation: Tachycardic - Resolved at the time of my assessment Notes: PHYSICAL EXAMINATION: GENERAL: Well-appearing, well-nourished and in no acute distress. HEAD: Atraumatic, normocephalic. EYES: Pupils equal round and reactive to light, extraocular movements intact, sclera anicteric, conjunctiva are normal. ENT: nares patent, oropharynx clear without exudates. Moist mucous membranes. NECK: Normal range of motion, supple without lymphadenopathy LUNGS: Breath sounds clear to auscultation bilaterally and equal. No wheezes rales or rhonchi. HEART: Regular rate and rhythm without murmurs ABDOMEN: Soft, minimal suprapubic and bilateral adnexal tenderness otherwise no localized areas of tenderness normoactive bowel sounds. No guarding, no rebound. No masses appreciated. EXTREMITIES: Normal range of motion, no pitting or edema. No cyanosis. NEUROLOGICAL: No focal neurological deficits. Moves all extremities spontaneously and on command. PSYCH: Normal mood, normal affect. SKIN: Warm, Dry, normal turgor, no rashes or lesions noted. Course - Re-evaluation Re-evalutation: 09/02/17 01:26 Patient presents with 3 days of suprapubic and bilateral adnexal pain that is described as a cramping pain. Patient otherwise well in appearance, vitals within normal limits, no distress. She has no focal right lower quadrant tenderness to suggest an acute appendicitis. She denies vaginal discharge or constitutional symptoms and no vital sign abnormalities to suggest a pelvic inflammatory disease. She is status post tubal ligation making unlikely although will verify with labs. A urinary tract infection particular given that the patient is complaining of some bilateral flank tenderness would be most consistent with her presentation. Alternatives would also consider beginning of a menstrual cycle as she notes that she has had severe menstrual cramping ever since she had a tubal ligation. Very low clinical suspicion for a bowel perforation, mesenteric ischemia, and the patient has no upper abdominal tenderness to suggest an acute pancreatitis or biliary pathology. Will await labs and reassess the patient. 09/02/17 02:05 Labs completely unremarkable. Patient's pain is improved she is actually eating [employer] when I going to reassess her. She states her pain is improved after receiving Toradol. Suspect possible onset of her menstrual cycle although I have emphasized the patient that I am uncertain of her diagnosis and have reviewed the need to return immediately to the emergency department for new or worsening symptoms. At this time will discharge with return precautions and follow-up recommendations. Verbal discharge instructions given a the bedside and opportunity for questions given. Medication warnings reviewed. Patient is in agreement with this plan and has verbalized understanding of return precautions and the need for primary care follow-up in the next 24-72 hours. - Vital Signs Vital signs: Temp Pulse Resp BP Pulse Ox 98.1 F 103 H 18 121/82 100 09/01/17 23:45 09/01/17 23:45 09/01/17 23:45 09/01/17 23:45 09/01/17 23:45 - Laboratory Result Diagrams: 09/02/17 00:53 09/02/17 00:53 Laboratory results interpreted by me: 09/02/17 09/02/17 00:53 00:53 WBC 11.7 H Hgb 10.5 L Hct 33.0 L MCV 66 L MCH 21.0 L MCHC 31.7 L RDW 19.2 H Absolute Neutrophils 8.6 H Chloride 108 H Total Protein 8.3 H Discharge - Discharge Clinical Impression: Lower abdominal pain, Pelvic pain Condition: Good Disposition: HOME, SELF-CARE Additional Instructions: You have been seen in the Emergency Department (ED) for abdominal pain. Your evaluation did not identify a clear cause of your symptoms but was generally reassuring. Please follow up with your doctor as soon as possible regarding today's emergent visit and the symptoms that are bothering you. Return to the ED if your abdominal pain worsens or fails to improve, you develop bloody vomiting, bloody diarrhea, you are unable to tolerate fluids due to vomiting, fever greater than 101, or other symptoms that concern you.
[2017-09-02 01:49] LABS: APPEARANCE,URINE CLEAR; BILIRUBIN,URINE NEGATIVE (NEGATIVE); COLOR,URINE YELLOW; GLUCOSE, URINE NEGATIVE (NEGATIVE); KETONES,URINE NEGATIVE (NEGATIVE); LEUKOCYTE ESTERASE,URINE NEGATIVE (NEGATIVE); NITRITE,URINE NEGATIVE (NEGATIVE); PROTEIN,URINE NEGATIVE (NEGATIVE); URINE SPECIFIC GRAVITY 1.013; UROBILINOGEN,URINE NEGATIVE mg/dL (<2.0)
== END 2017-09-02 02:52 | disposition home or self-care (01) ==
LOC: ER 23:35
DX: R10.30 Lower abdominal pain, unspecified (principal); R10.2 Pelvic and perineal pain; M32.9 Systemic lupus erythematosus, unspecified; F17.200 Nicotine dependence, unspecified, uncomplicated
CPT/HCPCS: 99284; 96372; 36415; 83690; 84703; 85025; 80053; 81001; J1885

== ENCOUNTER 2017-10-18 23:53 | Emergency (ER) | payer SELFPAY ==
[2017-10-19] MEDS ORDERED: ONDANSETRON 4 MG TAB.RAPDIS PO ONE (00:38)
--- NOTE | 2017-10-19 01:31 | ER Document Report ---
ED General - General Mode of Arrival: Ambulatory Information source: Patient TRAVEL OUTSIDE OF THE [place] IN LAST 30 DAYS: No <SONNY RENTERIA - Last Filed: 10/19/17 01:11> <ELIUD YEH - Last Filed: 10/19/17 05:40> - General Chief Complaint: Possible Overdose Stated Complaint: POSSIBLE OVERDOSE Time Seen by Provider: 10/19/17 00:23 Notes: 26-year-old female with lupus that presents to the emergency department today with complaints of "taking too many flexeril". Patient states she has been having lupus related pain and she has been taking Flexeril for this and she took 6 Flexeril within about 1 hour which is why she came into the emergency department. Patient states she told her mom that she took this much and her mom told her that was way too much to take and to come into the emergency department today. Patient denies trying to hurt herself. (SONNY RENTERIA) - Related Data Allergies/Adverse Reactions: Penicillins Allergy (Verified 01/23/17 13:53) Past Medical History - General Information source: Patient - Social History Smoking Status: Never Smoker Cigarette use (# per day): No Frequency of alcohol use: None Drug Abuse: None Lives with: Family Family History: Reviewed & Not Pertinent, DM Neurological Medical History: Reports: Hx Migraine Renal/ Medical History: Denies: Hx Peritoneal Dialysis GI Medical History: Reports: Hx Gastroesophageal Reflux Disease Musculoskeletal Medical History: Reports Hx Arthritis - RA Psychiatric Medical History: Reports: Hx Bipolar Disorder, Hx Depression - gestational Past Surgical History: Reports: Hx Tubal Ligation - Immunizations Immunizations up to date: Yes Hx Diphtheria, Pertussis, Tetanus Vaccination: Yes <SONNY RENTERIA - Last Filed: 10/19/17 01:11> Review of Systems - Review of Systems Constitutional: No symptoms reported EENT: No symptoms reported Cardiovascular: No symptoms reported Respiratory: No symptoms reported Gastrointestinal: No symptoms reported Genitourinary: No symptoms reported Female Genitourinary: No symptoms reported Musculoskeletal: See HPI, Joint pain Skin: No symptoms reported Hematologic/Lymphatic: No symptoms reported Neurological/Psychological: No symptoms reported -: Yes All other systems reviewed and negative <SONNY RENTERIA - Last Filed: 10/19/17 01:11> Physical Exam - Vital signs Interpretation: Tachycardic - General General appearance: Other - Drowsy but arousable In distress: None - HEENT Head: Normocephalic, Atraumatic Eyes: Normal Pupils: PERRL - Respiratory Respiratory status: No respiratory distress Chest status: Nontender Breath sounds: Normal Chest palpation: Normal - Cardiovascular Rhythm: Regular Heart sounds: Normal auscultation Murmur: No - Abdominal Inspection: Normal Distension: No distension Bowel sounds: Normal Tenderness: Nontender Organomegaly: No organomegaly - Back Back: Normal, Nontender - Extremities General upper extremity: Normal inspection, Nontender, Normal color, Normal ROM , Normal temperature General lower extremity: Normal inspection, Nontender, Normal color, Normal ROM , Normal temperature, Normal weight bearing. No: Mignon's sign - Neurological Neuro grossly intact: Yes Cognition: Normal Orientation: AAOx4 [place] Coma Scale Eye Opening: Spontaneous Ace Coma Scale Verbal: Oriented [place] Coma Scale Motor: Obeys Commands [place] Coma Scale Total: 15 Speech: Normal Motor strength normal: LUE, RUE, LLE, RLE Sensory: Normal - Psychological Associated symptoms: Normal affect, Normal mood - Skin Skin Temperature: Warm Skin Moisture: Dry Skin Color: Normal <ELIUD YEH - Last Filed: 10/19/17 05:40> - Vital signs Vitals: Temp Pulse Resp BP Pulse Ox 98.6 F 104 H 14 136/92 H 100 10/18/17 23:53 10/18/17 23:53 10/18/17 23:53 10/18/17 23:53 10/18/17 23:53 Course <SONNY RENTERIA - Last Filed: 10/19/17 01:11> - EKG Interpretation by Vt Rate: Normal Rhythm: NSR <ELIUD YEH - Last Filed: 10/19/17 05:40> - Re-evaluation Re-evalutation: 10/19/17 Patient is a 26-year-old female with a history of lupus who took 610 mg Flexeril this evening. Patient states that she is having pain in just trying to feel better which she does not but she is dizzy. She did not take any other medications. She is supposed to be seeing a manager icu but has had a problem with her insurance. EKG within normal limits. Patient is not . Appears well. Again, denies any concomitant ingestion. Denies any suicidal ideation. Social work consult will be placed to help patient with insurance and hopefully follow-up with rheumatology. Stable for discharge. Ambulates without difficulty. (ELIUD YEH) - Vital Signs Vital signs: Temp Pulse Resp BP Pulse Ox 98 F 86 18 100/57 L 97 10/19/17 04:00 10/19/17 04:00 10/19/17 04:00 10/19/17 04:00 10/19/17 04:00 - Laboratory Laboratory results interpreted by me: 10/19/17 01:15 Urine Blood SMALL H Discharge <SONNY RENTERIA - Last Filed: 10/19/17 01:11> <ELIUD YEH - Last Filed: 10/19/17 05:40> - Discharge Clinical Impression: Overdose Qualifiers: Encounter type: initial encounter Injury intent: intentional self-harm Qualified Code(s): T50.902A - Poisoning by unspecified drugs, medicaments and biological substances, intentional self-harm, initial encounter Condition: Stable Disposition: HOME, SELF-CARE Instructions: Instructions for Home Care Following a Drug Overdose ([facility]) Additional Instructions: Make sure you are drinking plenty of fluids. Please only take medications as prescribed. Follow-up with your doctor on Sunday. Forms: Return to Work Scribe Attestation: 10/19/17 05:40 I personally performed the services described in the documentation, reviewed and edited the documentation which was dictated to the scribe in my presence, and it accurately records my words and actions. (ELIUD YEH) Scribe Documentation - Scribe Written by Chris:: Chris Barragan, 10/19/2017 0131 acting as scribe for :: Taylor <SONNY RENTERIA - Last Filed: 10/19/17 01:11>
[2017-10-19 01:49] LABS: APPEARANCE,URINE CLEAR; BILIRUBIN,URINE NEGATIVE (NEGATIVE); COLOR,URINE STRAW; GLUCOSE, URINE NEGATIVE (NEGATIVE); KETONES,URINE NEGATIVE (NEGATIVE); LEUKOCYTE ESTERASE,URINE NEGATIVE (NEGATIVE); NITRITE,URINE NEGATIVE (NEGATIVE); PROTEIN,URINE NEGATIVE (NEGATIVE); URINE SPECIFIC GRAVITY 1.003; UROBILINOGEN,URINE NEGATIVE mg/dL (<2.0)
[2017-10-19] MEDS ORDERED: METOCLOPRAMIDE HCL 10 MG TABLET PO ONE (02:46)
[2017-10-19] MEDS ORDERED: ONDANSETRON ODT 4 MG TAB (6 TAB/ER DISP) PO PRN (04:10)
[2017-10-19 04:29] VITALS: BP 100/57
--- NOTE | 2017-10-19 09:00 | EKG REPORT ---
SEVERITY:- NORMAL ECG - SINUS RHYTHM : Confirmed by: Luis Peterson 19-Oct-2017 08:59:37
== END 2017-10-19 04:22 | disposition home or self-care (01) ==
LOC: ER 23:53
DX: T48.1X2A Poisoning by skeletal muscle relaxants [neuromuscular blocking agents], intentional self-harm, initial encounter (principal); R40.0 Somnolence; R42 Dizziness and giddiness; M06.9 Rheumatoid arthritis, unspecified
CPT/HCPCS: 93005; 99284; 81025; 81001; 93010; S0119

== ENCOUNTER 2018-03-18 09:47 | Emergency (ER) | payer SELFPAY ==
--- NOTE | 2018-03-18 10:05 | ER Document Report ---
ED Medical Screen (RME) - General Chief Complaint: Flank Pain Stated Complaint: BACK/FLANK PAIN Time Seen by Provider: 03/18/18 10:03 Mode of Arrival: Ambulatory Information source: Patient Notes: This is a 27-year-old female with a history of lupus (no medications) who presents to the emergency room with cloudy, dark urine for the past week. Patient states she has had frequent kidney infections in the past. She does complain of intermittent backache. She denies fever, chills, nausea or vomiting. TRAVEL OUTSIDE OF THE [place] IN LAST 30 DAYS: No - Related Data Allergies/Adverse Reactions: Penicillins Allergy (Verified 03/18/18 09:49) Past Medical History - Social History Chew tobacco use (# tins/day): No Frequency of alcohol use: Social Drug Abuse: None Neurological Medical History: Reports: Hx Migraine Renal/ Medical History: Denies: Hx Peritoneal Dialysis GI Medical History: Reports: Hx Gastroesophageal Reflux Disease Musculoskeltal Medical History: Reports Hx Arthritis - RA Psychiatric Medical History: Reports: Hx Bipolar Disorder, Hx Depression - gestational Past Surgical History: Reports: Hx Tubal Ligation - Immunizations Immunizations up to date: Yes Hx Diphtheria, Pertussis, Tetanus Vaccination: Yes History of Influenza Vaccine for 11/2016 - 04/2017 Season: Refused Physical Exam - Vital signs Vitals: Temp Pulse Resp BP Pulse Ox 97.8 F 112 H 16 125/86 H 100 03/18/18 09:55 03/18/18 09:55 03/18/18 09:55 03/18/18 09:55 03/18/18 09:55 Course - Vital Signs Vital signs: Temp Pulse Resp BP Pulse Ox 97.8 F 112 H 16 125/86 H 100 03/18/18 09:55 03/18/18 09:55 03/18/18 09:55 03/18/18 09:55 03/18/18 09:55
[2018-03-18 10:35] LABS: ABSOLUTE BASOPHILS # (AUTO) 0.1 10^3/uL (0.0-0.2); ABSOLUTE EOSINOPHILS # (AUTO) 0.3 10^3/uL (0.0-0.6); ABSOLUTE LYMPHOCYTES (AUTO) 3.1 10^3/uL (0.5-4.7); ABSOLUTE MONOCYTES (AUTO) 0.8 10^3/uL (0.1-1.4); BASOPHILS % (AUTO) 0.5 % (0-2); HEMATOCRIT 35.9 % (36.0-47.0); HEMOGLOBIN 11.2 g/dL (12.0-15.5); LYMPHOCYTES % (AUTO) 23.8 % (13-45); MEAN CORPUSCULAR HEMOGLOBIN 20.7 pg (27.0-33.4); MEAN CORPUSCULAR HGB CONC 31.1 g/dL (32.0-36.0); MEAN CORPUSCULAR VOLUME 67 fl (80-97); MONOCYTES % (AUTO) 5.9 % (3-13); PLATELET COUNT 400 10^3/uL (150-450); RED CELL DISTRIBUTION WIDTH 19.2 % (11.5-14.0); SEGMENTED NEUTROPHILS % (AUTO) 67.8 % (42-78); TOTAL CELLS COUNTED % (AUTO) 100 %; WHITE BLOOD COUNT 13.2 10^3/uL (4.0-10.5)
[2018-03-18 10:49] LABS: APPEARANCE,URINE CLOUDY; BILIRUBIN,URINE NEGATIVE (NEGATIVE); GLUCOSE, URINE NEGATIVE (NEGATIVE); KETONES,URINE NEGATIVE (NEGATIVE); LEUKOCYTE ESTERASE,URINE MODERATE (NEGATIVE); NITRITE,URINE NEGATIVE (NEGATIVE); PROTEIN,URINE 30 mg/dL (NEGATIVE); URINE SPECIFIC GRAVITY 1.027
[2018-03-18 10:50] LABS: COLOR,URINE DARK YELLOW
--- NOTE | 2018-03-18 10:58 | ER Document Report ---
ED General - General Chief Complaint: Flank Pain Stated Complaint: BACK/FLANK PAIN Time Seen by Provider: 03/18/18 10:03 Mode of Arrival: Ambulatory Notes: 27-year-old female presents emergency department with a 2-week history of vaginal discharge and odor. Patient states the vaginal discharge is a creamy color. She states this is different than her normal discharge. She states that her boyfriend was recently diagnosed with chlamydia and she is concerned she might have contracted it. She is also noted that her urine is been very dark in color. She states that she has been drinking plenty of water and it is not going away. She notices an odor with her urine and has had dysuria, increased urgency, increased frequency and lower back pain. She denies any nausea, vomiting, diarrhea, constipation, abdominal pain, fever, chills. TRAVEL OUTSIDE OF THE [place] IN LAST 30 DAYS: No - HPI Onset: Last week - 2 week Onset/Duration: Gradual Quality of pain: Dull Severity: Mild Pain Level: Denies Associated symptoms: Other - urinary Exacerbated by: Denies Relieved by: Denies Similar symptoms previously: Yes Recently seen / treated by doctor: No - Related Data Allergies/Adverse Reactions: Penicillins Allergy (Verified 03/18/18 09:49) Past Medical History - General Information source: Patient - Social History Smoking Status: Current Every Day Smoker Chew tobacco use (# tins/day): No Frequency of alcohol use: Social Drug Abuse: None Family History: Reviewed & Not Pertinent, DM Patient has suicidal ideation: No Patient has homicidal ideation: No Neurological Medical History: Reports: Hx Migraine Renal/ Medical History: Denies: Hx Peritoneal Dialysis GI Medical History: Reports: Hx Gastroesophageal Reflux Disease Musculoskeletal Medical History: Reports Hx Arthritis - RA Psychiatric Medical History: Reports: Hx Bipolar Disorder, Hx Depression - gestational Past Surgical History: Reports: Hx Tubal Ligation - Immunizations Immunizations up to date: Yes Hx Diphtheria, Pertussis, Tetanus Vaccination: Yes Review of Systems - Review of Systems Constitutional: No symptoms reported EENT: No symptoms reported Cardiovascular: No symptoms reported Respiratory: No symptoms reported Gastrointestinal: No symptoms reported Genitourinary: Dysuria, Frequency, Flank pain, Hematuria, Urgency Female Genitourinary: Vaginal discharge, Vaginal odor Musculoskeletal: No symptoms reported Skin: No symptoms reported Hematologic/Lymphatic: No symptoms reported Neurological/Psychological: No symptoms reported -: Yes All other systems reviewed and negative Physical Exam - Vital signs Vitals: Temp Pulse Resp BP Pulse Ox 97.8 F 112 H 16 125/86 H 100 03/18/18 09:55 03/18/18 09:55 03/18/18 09:55 03/18/18 09:55 03/18/18 09:55 - Notes Notes: PHYSICAL EXAMINATION: GENERAL: Well-appearing, well-nourished and in no acute distress. HEAD: Atraumatic, normocephalic. EYES: Pupils equal round and reactive to light, extraocular movements intact, conjunctiva are normal. ENT: Nares patent, oropharynx clear without exudates. Moist mucous membranes. NECK: Normal range of motion, supple without lymphadenopathy LUNGS: Breath sounds clear to auscultation bilaterally and equal. No wheezes rales or rhonchi. HEART: Regular rate and rhythm without murmurs ABDOMEN: Soft, nontender, nondistended abdomen. No guarding, no rebound. No masses appreciated. Female : No cervical motion tenderness. Os closed. No ovarian tenderness to palpation. Thick white discharge noted. Musculoskeletal: Normal range of motion, no pitting or edema. No cyanosis. Right CVA tenderness. NEUROLOGICAL: Cranial nerves grossly intact. Normal speech, normal gait. Normal sensory, motor exams PSYCH: Normal mood, normal affect. SKIN: Warm, Dry, normal turgor, no rashes or lesions noted. Course - Re-evaluation Re-evalutation: 03/18/18 14:12 Physical exam is remarkable for Right CVA tenderness. Pelvic exam was done. No cervical motion tenderness. Patient does have thick white discharge. Patient has had exposure to chlamydia and is requesting treatment. She states that she is allergic to penicillins. She states that she swells up and has had difficulty breathing. Patient treated for gonorrhea and chlamydia in the emergency department. I will start her on levofloxacin to cover for pyelonephritis and metronidazole for bacterial vaginosis. I instructed the patient to follow-up with her primary care physician this week, to take the medication prescribed as directed, and to return for worsening symptoms. 03/18/18 14:14 03/18/18 14:16 - Vital Signs Vital signs: Temp Pulse Resp BP Pulse Ox 97.8 F 112 H 16 125/86 H 100 03/18/18 09:55 03/18/18 09:55 03/18/18 09:55 03/18/18 09:55 03/18/18 09:55 - Laboratory Result Diagrams: 03/18/18 10:05 03/18/18 10:05 Laboratory results interpreted by me: 03/18/18 03/18/18 03/18/18 10:05 10:05 10:05 WBC 13.2 H RBC 5.40 H Hgb 11.2 L Hct 35.9 L MCV 67 L MCH 20.7 L MCHC 31.1 L RDW 19.2 H Absolute Neutrophils 9.0 H Glucose 111 H AST 50 H Alkaline Phosphatase 150 H Total Protein 8.4 H Urine Protein 30 H Urine Urobilinogen 2.0 H Ur Leukocyte Esterase MODERATE H Urine Ascorbic Acid 20 H Chlamydia DNA (PCR) 03/18/18 11:31 WBC RBC Hgb Hct MCV MCH MCHC RDW Absolute Neutrophils Glucose AST Alkaline Phosphatase Total Protein Urine Protein Urine Urobilinogen Ur Leukocyte Esterase Urine Ascorbic Acid Chlamydia DNA (PCR) DETECTED H Discharge - Discharge Clinical Impression: Bacterial vaginosis Urinary tract infection Qualifiers: Urinary tract infection type: site unspecified Hematuria presence: without hematuria Qualified Code(s): N39.0 - Urinary tract infection, site not specified Condition: Good Disposition: HOME, SELF-CARE Instructions: Urinary Tract Infection ([facility]), Vaginosis, Bacterial ([facility]) Prescriptions: Levofloxacin [Levaquin 750 mg Tablet] 750 mg PO DAILY #5 tablet Metronidazole [Flagyl 500 mg Tablet] 500 mg PO BID #14 tablet
[2018-03-18 11:01] LABS: ALANINE AMINOTRANSFERASE 51 U/L (9-52); ALKALINE PHOSPHATASE 150 U/L (38-126); ANION GAP 11 (5-19); ASPARTATE AMINO TRANSFERASE 50 U/L (14-36); BILIRUBIN,DIRECT 0.3 mg/dL (0.0-0.4); BILIRUBIN,TOTAL 0.7 mg/dL (0.2-1.3); BLOOD UREA NITROGEN 11 mg/dL (7-20); CARBON DIOXIDE 26 mmol/L (22-30); CHLORIDE 106 mmol/L (98-107); GLUCOSE 111 mg/dL (75-110); POTASSIUM 3.7 mmol/L (3.6-5.0); SODIUM 143.4 mmol/L (137-145); TOTAL PROTEIN 8.4 g/dL (6.3-8.2)
[2018-03-18 12:23] LABS: T.VAGINALIS (WET MOUNT) NO TRICHOMONAS SEEN; YEAST (WET MOUNT) NO YEAST SEEN
[2018-03-18 12:24] LABS: BACTERIA (WET MOUNT) 3+ BACTERIA SEEN; EPITHELIALS (WET MOUNT) 3+ EPITHELIALS SEEN; WBCS (WET MOUNT) 3+ WBCS SEEN
[2018-03-18 13:54] LABS: CHLAM PCR DETECTED (NOT DETECT); GON PCR NOT DETECTED (NOT DETECT)
[2018-03-18] MEDS ORDERED: GENTAMICIN SULFATE INJ 80 MG/2 ML VIAL IM ONE (14:02)
[2018-03-18] MEDS ORDERED: AZITHROMYCIN 250 MG TABLET PO ONE (14:02)
[2018-03-18] MEDS ORDERED: KETOROLAC TROMETHAMINE 60 MG/2 ML SDV IM ONE (14:15)
[2018-03-18 15:49] VITALS: BP 126/80
== END 2018-03-18 15:25 | disposition home or self-care (01) ==
LOC: ER 09:47
DX: N76.0 Acute vaginitis (principal); B96.89 Other specified bacterial agents as the cause of diseases classified elsewhere; N39.0 Urinary tract infection, site not specified; R10.9 Unspecified abdominal pain; Z20.2 Contact with and (suspected) exposure to infections with a predominantly sexual mode of transmission; R30.0 Dysuria; R39.15 Urgency of urination; R35.0 Frequency of micturition; M54.5 Low back pain; F17.200 Nicotine dependence, unspecified, uncomplicated
CPT/HCPCS: 99284; 96372; 36415; 87086; 87210; 85025; 81025; 87088; 80053; 81001; 87186; 87491; 87591; J1885; J1580

== ENCOUNTER 2018-04-25 00:48 | Emergency (ER) | payer SELFPAY ==
[2018-04-25] MEDS ORDERED: ONDANSETRON HCL INJ/PF 4 MG/2 ML SDV IV ONE (02:12)
[2018-04-25] MEDS ORDERED: NORMAL SALINE 1000 ML 1,000 ML IV ONE (02:12)
[2018-04-25] MEDS ORDERED: KETOROLAC TROMETHAMINE INJ/PF 30 MG/1 ML SDV IV ONE (02:12)
--- NOTE | 2018-04-25 02:13 | ER Document Report ---
ED GI/ - General Chief Complaint: Abdominal Pain Stated Complaint: LOWER BACK PAIN Time Seen by Provider: 04/25/18 02:01 Notes: Patient is a 27-year-old female that comes emergency department for chief complaint of pelvic pain on both sides with some radiation to the lower back, nausea, she is also had some loose stools. She states she has no appetite and has barely eaten anything. She states because of this she is losing weight. Symptoms started 3 weeks ago, much worse over the past week reportedly. Treated 1 month ago with Levaquin and Flagyl because of positive chlamydia, has a history of tubal ligation, is sexually active with her significant other. Denies any medical history otherwise. TRAVEL OUTSIDE OF THE [place] IN LAST 30 DAYS: No - Related Data Allergies/Adverse Reactions: Penicillins Allergy (Verified 03/18/18 09:49) Past Medical History - General Information source: Patient - Social History Smoking Status: Never Smoker Frequency of alcohol use: None Drug Abuse: None Lives with: Family Family History: Reviewed & Not Pertinent, DM Neurological Medical History: Reports: Hx Migraine Renal/ Medical History: Denies: Hx Peritoneal Dialysis GI Medical History: Reports: Hx Gastroesophageal Reflux Disease Musculoskeletal Medical History: Reports Hx Arthritis - RA Psychiatric Medical History: Reports: Hx Bipolar Disorder, Hx Depression - gestational Past Surgical History: Reports: Hx Tubal Ligation - Immunizations Immunizations up to date: Yes Hx Diphtheria, Pertussis, Tetanus Vaccination: Yes Review of Systems - Review of Systems Constitutional: No symptoms reported EENT: No symptoms reported Cardiovascular: No symptoms reported Respiratory: No symptoms reported Gastrointestinal: See HPI Genitourinary: See HPI Female Genitourinary: See HPI Musculoskeletal: No symptoms reported Skin: No symptoms reported Hematologic/Lymphatic: No symptoms reported Neurological/Psychological: No symptoms reported Physical Exam - Vital signs Vitals: Resp Pulse Ox 16 100 04/25/18 03:00 04/25/18 03:00 - Notes Notes: GENERAL: Alert, interacts well. No acute distress. HEAD: Normocephalic, atraumatic. EYES: Pupils equal, round, and reactive to light. Extraocular movements intact. ENT: Oral mucosa moist, tongue midline. Oropharynx unremarkable. Airway patent. Nares patent, no nasal septal hematoma, TM's intact. NECK: Full range of motion. Supple. Trachea midline. LUNGS: Clear to auscultation bilaterally, no wheezes, rales, or rhonchi. No respiratory distress. HEART: Regular rate and rhythm. No murmur ABDOMEN: There is some mild generalized lower abdominal tenderness. No guarding. No specific tenderness. No rigidity. GENITOURINARY: No discharge, tenderness, or abnormality noted on pelvic exam. Unremarkable external exam. Olamide PCT present during exam. EXTREMITIES: Moves all 4 extremities spontaneously. No edema, normal radial and dorsalis pedis pulses bilaterally. No cyanosis. BACK: no cervical, thoracic, lumbar midline tenderness. No saddle anesthesia, normal distal neurovascular exam. NEUROLOGICAL: Alert and oriented x3. Normal speech. [cranial nerves II through XII grossly intact]. PSYCH: Normal affect, normal mood. SKIN: Warm, dry, normal turgor. No rashes or lesions noted. Course - Re-evaluation Re-evalutation: Offered to test patient's loose stools, she states she cannot give a sample and she will not be giving a sample. As a result I have low suspicion of inflammatory diarrhea. Patient has some generalized lower abdominal tenderness which is nonspecific, pelvic examination with no discharge and absolutely no tenderness. Very low suspicion of pelvic infection as the cause of patient's pain. CBC unremarkable, chemistry unremarkable, urine showing elevated specific gravity, patient was given IV fluids. She was given symptom management. Remains alert and well-appearing on reevaluation. Ultrasound showing normal right ovary and unremarkable exam. Discussed with patient. This is more likely patient's bowel, there is bowel gas seen on ultrasound, she has had irregular bowel movements with no recent formed stool but she is not having persistent diarrhea. Patient will be treated with medications for this. I discussed follow-up and return precautions. Patient states satisfaction and agreement with plan. - Vital Signs Vital signs: Temp Pulse Resp BP Pulse Ox 98.8 F 13 107/68 100 04/25/18 05:36 04/25/18 05:36 04/25/18 05:36 04/25/18 05:36 - Laboratory Result Diagrams: 04/25/18 02:38 04/25/18 03:19 Laboratory results interpreted by me: 04/25/18 04/25/18 04/25/18 02:38 02:38 03:19 WBC 10.8 H Hgb 11.1 L Hct 34.3 L MCV 66 L MCH 21.4 L RDW 19.1 H Chloride 112 H Urine Protein 30 H Urine Urobilinogen 4.0 H Discharge - Discharge Clinical Impression: Lower abdominal pain Condition: Stable Disposition: HOME, SELF-CARE Additional Instructions: Your symptoms seem to be coming from your bowel. Your ultrasound is normal. I recommend the Bentyl for pain, Colace stool softener, plenty of fluids, Phenergan if needed for nausea. After several days stop stool softener, increase fiber in your diet. Follow-up with primary care for additional management. Return for any concerning symptoms including vomiting, fever, severe worsening pain, or any other concerning symptoms. Prescriptions: Dicyclomine HCl [Bentyl 20 mg Tablet] 20 mg PO QID PRN #20 tablet PRN Reason: Docusate Sodium [Colace 100 mg Capsule] 100 mg PO ASDIR PRN #30 capsule PRN Reason: Promethazine HCl [Phenergan 25 mg Tablet] 25 mg PO Q6H PRN #15 tablet PRN Reason:
[2018-04-25 03:08] LABS: ABSOLUTE BASOPHILS # (AUTO) 0.1 10^3/uL (0.0-0.2); ABSOLUTE EOSINOPHILS # (AUTO) 0.1 10^3/uL (0.0-0.6); ABSOLUTE MONOCYTES (AUTO) 0.5 10^3/uL (0.1-1.4); ABSOLUTE NEUT (AUTO) 8.2 10^3/uL (1.7-8.2); BASOPHILS % (AUTO) 0.6 % (0-2); EOSINOPHILS % (AUTO) 1.4 % (0-6); HEMATOCRIT 34.3 % (36.0-47.0); HEMOGLOBIN 11.1 g/dL (12.0-15.5); LYMPHOCYTES % (AUTO) 18.1 % (13-45); MEAN CORPUSCULAR HEMOGLOBIN 21.4 pg (27.0-33.4); MEAN CORPUSCULAR HGB CONC 32.5 g/dL (32.0-36.0); MEAN CORPUSCULAR VOLUME 66 fl (80-97); MONOCYTES % (AUTO) 4.5 % (3-13); PLATELET COUNT 338 10^3/uL (150-450); RED BLOOD COUNT 5.19 10^6/uL (3.72-5.28); RED CELL DISTRIBUTION WIDTH 19.1 % (11.5-14.0); SEGMENTED NEUTROPHILS % (AUTO) 75.4 % (42-78); TOTAL CELLS COUNTED % (AUTO) 100 %; WHITE BLOOD COUNT 10.8 10^3/uL (4.0-10.5)
[2018-04-25 03:14] LABS: APPEARANCE,URINE SLIGHTLY-CLOUDY; BILIRUBIN,URINE NEGATIVE (NEGATIVE); COLOR,URINE DARK YELLOW; GLUCOSE, URINE NEGATIVE (NEGATIVE); KETONES,URINE NEGATIVE (NEGATIVE); LEUKOCYTE ESTERASE,URINE NEGATIVE (NEGATIVE); NITRITE,URINE NEGATIVE (NEGATIVE); PROTEIN,URINE 30 mg/dL (NEGATIVE); URINE SPECIFIC GRAVITY 1.029
[2018-04-25 03:43] LABS: ALANINE AMINOTRANSFERASE 14 U/L (9-52); ALBUMIN 3.7 g/dL (3.5-5.0); ALKALINE PHOSPHATASE 69 U/L (38-126); ANION GAP 7 (5-19); ASPARTATE AMINO TRANSFERASE 15 U/L (14-36); BILIRUBIN,DIRECT 0.3 mg/dL (0.0-0.4); BILIRUBIN,TOTAL 0.4 mg/dL (0.2-1.3); BLOOD UREA NITROGEN 10 mg/dL (7-20); CALCIUM 8.8 mg/dL (8.4-10.2); CARBON DIOXIDE 24 mmol/L (22-30); CHLORIDE 112 mmol/L (98-107); GLUCOSE 98 mg/dL (75-110); POTASSIUM 3.7 mmol/L (3.6-5.0); TOTAL PROTEIN 6.4 g/dL (6.3-8.2)
[2018-04-25] MEDS ORDERED: HYDROCODONE/ACETAMINOPHEN 5-325 MG TABLET PO ONE (03:55)
[2018-04-25 03:59] LABS: BACTERIA (WET MOUNT) 3+ BACTERIA SEEN; RBCS (WET MOUNT) 1+ RBCS SEEN; T.VAGINALIS (WET MOUNT) NO TRICHOMONAS SEEN; WBCS (WET MOUNT) 2+ WBCS SEEN; YEAST (WET MOUNT) NO YEAST SEEN
--- NOTE | 2018-04-25 05:05 | RADIOLOGY REPORT (SQ) ---
EXAM DESCRIPTION: US TRANSVAGINAL COMPLETED DATE/TME: 04/25/2018 03:55 CLINICAL HISTORY: 27 years, Female, right pelvic pain COMPARISON:None. TECHNIQUE: Grayscale and Doppler sonogram of the pelvis. Transvaginal technique was used for better evaluation of the pelvic viscera FINDINGS: The uterus measures 8.7 x 3.8 cm. Endometrial stripe: 8 mm Right ovary: Measures 2.7 x 1.6 x 1.5 cm. Normal doppler flow. No mass lesion. Left ovary: Not visualized due to intervening bowel gas. Free fluid: None. IMPRESSION: No acute sonographic abnormality. Nonvisualization of the left ovary due to bowel gas.
[2018-04-25 05:40] VITALS: BP 107/68
[2018-04-25 06:40] LABS: CHLAM PCR NOT DETECTED (NOT DETECT); GON PCR NOT DETECTED (NOT DETECT)
== END 2018-04-25 05:40 | disposition home or self-care (01) ==
LOC: ER 00:48
DX: R10.30 Lower abdominal pain, unspecified (principal); R10.2 Pelvic and perineal pain; R11.0 Nausea; Z88.0 Allergy status to penicillin; Z98.51 Tubal ligation status
CPT/HCPCS: 99284; 96361; 96374; 96375; 36415; 87210; 84703; 85025; 80053; 81001; 87491; 87591; 76830; 93976; J1885; J2405; J7030

== ENCOUNTER 2019-03-07 15:47 | Emergency (ER) | payer MEDICAID ==
[2019-03-07] MEDS ORDERED: ACETAMINOPHEN 325 MG TABLET PO ONE (16:12)
[2019-03-07] MEDS ORDERED: NORMAL SALINE 1000 ML 1,000 ML IV ONE (16:12)
[2019-03-07] MEDS ORDERED: METOCLOPRAMIDE HCL INJ/PF 10 MG/2 ML SDV IV ONE (16:12)
--- NOTE | 2019-03-07 16:12 | ER Document Report ---
ED Medical Screen (RME) - General Chief Complaint: Back Pain Stated Complaint: BACK PAIN, HEADACHE,LEG PAIN Time Seen by Provider: 03/07/19 16:09 TRAVEL OUTSIDE OF THE [place] IN LAST 30 DAYS: No - HPI Notes: 03/07/19 16:11 Patient is a 28-year-old female who presents complaining of a headache for 4 days which is not the worst of her life and did not start as a thunderclap as well as bilateral low/mid back pain and cloudy urine that began yesterday. Patient is questioning if she is dehydrated, but is able to maintain p.o. without difficulty. She is having normal bowel movements. No fever. She did take motrin 800mg at 12pm today. I have treated and performed a rapid initial assessment of this patient. A comprehensive ED assessment and evaluation of the patient, analysis of test results and completion of medical decision making process will be conducted by additional ED providers. PHYSICAL EXAMINATION: GENERAL: Well-appearing, well-nourished and in no acute distress. A&Ox4. Answers questions appropriately. Neuro: Cranial nerves grossly intact. - Related Data Allergies/Adverse Reactions: Penicillins Allergy (Verified 03/07/19 16:03) Past Medical History Neurological Medical History: Reports: Hx Migraine Renal/ Medical History: Denies: Hx Peritoneal Dialysis GI Medical History: Reports: Hx Gastroesophageal Reflux Disease Musculoskeltal Medical History: Reports Hx Arthritis - RA Psychiatric Medical History: Reports: Hx Bipolar Disorder, Hx Depression - gestational Past Surgical History: Reports: Hx Tubal Ligation - Immunizations Immunizations up to date: Yes Hx Diphtheria, Pertussis, Tetanus Vaccination: Yes Physical Exam - Vital signs Vitals: Temp Pulse Resp BP Pulse Ox 99.3 F 106 H 18 121/81 99 03/07/19 15:58 03/07/19 15:58 03/07/19 15:58 03/07/19 15:58 03/07/19 15:58 Course - Vital Signs Vital signs: Temp Pulse Resp BP Pulse Ox 99.3 F 106 H 18 121/81 99 03/07/19 15:58 03/07/19 15:58 03/07/19 15:58 03/07/19 15:58 03/07/19 15:58
[2019-03-07 16:24] LABS: ABSOLUTE BASOPHILS # (AUTO) 0.1 10^3/uL (0.0-0.2); ABSOLUTE EOSINOPHILS # (AUTO) 0.1 10^3/uL (0.0-0.6); ABSOLUTE MONOCYTES (AUTO) 0.5 10^3/uL (0.1-1.4); ABSOLUTE NEUT (AUTO) 8.6 10^3/uL (1.7-8.2); BASOPHILS % (AUTO) 0.5 % (0-2); EOSINOPHILS % (AUTO) 0.6 % (0-6); HEMATOCRIT 31.7 % (36.0-47.0); HEMOGLOBIN 10.2 g/dL (12.0-15.5); LYMPHOCYTES % (AUTO) 17.7 % (13-45); MEAN CORPUSCULAR HEMOGLOBIN 21.3 pg (27.0-33.4); MEAN CORPUSCULAR HGB CONC 32.1 g/dL (32.0-36.0); MEAN CORPUSCULAR VOLUME 66 fl (80-97); MONOCYTES % (AUTO) 4.2 % (3-13); PLATELET COUNT 270 10^3/uL (150-450); RED BLOOD COUNT 4.78 10^6/uL (3.72-5.28); RED CELL DISTRIBUTION WIDTH 18.5 % (11.5-14.0); TOTAL CELLS COUNTED % (AUTO) 100 %; WHITE BLOOD COUNT 11.2 10^3/uL (4.0-10.5)
[2019-03-07 16:45] LABS: ALBUMIN 4.4 g/dL (3.5-5.0); ALKALINE PHOSPHATASE 81 U/L (38-126); ANION GAP 10 (5-19); ASPARTATE AMINO TRANSFERASE 24 U/L (14-36); BILIRUBIN,DIRECT 0.2 mg/dL (0.0-0.4); BILIRUBIN,TOTAL 0.4 mg/dL (0.2-1.3); BLOOD UREA NITROGEN 11 mg/dL (7-20); CALCIUM 9.5 mg/dL (8.4-10.2); CARBON DIOXIDE 24 mmol/L (22-30); CHLORIDE 105 mmol/L (98-107); GLUCOSE 79 mg/dL (75-110); POTASSIUM 3.9 mmol/L (3.6-5.0)
[2019-03-07 17:41] LABS: APPEARANCE,URINE CLEAR; BILIRUBIN,URINE NEGATIVE (NEGATIVE); COLOR,URINE STRAW; GLUCOSE, URINE NEGATIVE (NEGATIVE); KETONES,URINE NEGATIVE (NEGATIVE); PROTEIN,URINE NEGATIVE (NEGATIVE); URINE SPECIFIC GRAVITY 1.004; UROBILINOGEN,URINE NEGATIVE mg/dL (<2.0)
--- NOTE | 2019-03-07 18:12 | ER Document Report ---
ED General - General Chief Complaint: Back Pain Stated Complaint: BACK PAIN, HEADACHE,LEG PAIN Time Seen by Provider: 03/07/19 16:09 Primary Care Provider: [facility] [Outside] - Follow up in 1 week TRAVEL OUTSIDE OF THE [place] IN LAST 30 DAYS: No - HPI Notes: 28 year old female to the ED with C/O headache for 4 days, back pain, and dark urine. States that the headache is in the front of her head and it is not the worst ever. No thunderclap in nature. no blurry vision, no photophobia, no vomiting, no cp, no SOB. States that the back pain and the urinary complaints started after the headache. She thinks she may have a UTI and be dehydrated. - Related Data Allergies/Adverse Reactions: Penicillins Allergy (Verified 03/07/19 16:03) Past Medical History - General Information source: Patient - Social History Smoking Status: Current Every Day Smoker Frequency of alcohol use: None Drug Abuse: None Family History: Reviewed & Not Pertinent, DM Patient has suicidal ideation: No Patient has homicidal ideation: No Neurological Medical History: Reports: Hx Migraine Renal/ Medical History: Denies: Hx Peritoneal Dialysis GI Medical History: Reports: Hx Gastroesophageal Reflux Disease Musculoskeletal Medical History: Reports Hx Arthritis - RA Psychiatric Medical History: Reports: Hx Bipolar Disorder, Hx Depression - gestational Past Surgical History: Reports: Hx Tubal Ligation - Immunizations Immunizations up to date: Yes Hx Diphtheria, Pertussis, Tetanus Vaccination: Yes Review of Systems - Review of Systems Constitutional: denies: Chills, Fever EENT: denies: Blurred vision, Double vision, Ear pain, Nose congestion, Nose discharge, Sinus pressure, Sinus discharge Cardiovascular: denies: Chest pain, Palpitations, Heart racing, Orthopnea, Dyspnea, Syncope, Dizziness, Lightheaded Respiratory: denies: Cough, Short of breath Gastrointestinal: denies: Abdominal pain, Diarrhea, Nausea, Vomiting Genitourinary: See HPI, Other Female Genitourinary: No symptoms reported Musculoskeletal: Back pain Skin: No symptoms reported Hematologic/Lymphatic: No symptoms reported Neurological/Psychological: No symptoms reported -: Yes All other systems reviewed and negative Physical Exam - Vital signs Vitals: Temp Pulse Resp BP Pulse Ox 99.3 F 106 H 18 121/81 99 03/07/19 15:58 03/07/19 15:58 03/07/19 15:58 03/07/19 15:58 03/07/19 15:58 Interpretation: Normal - General General appearance: Appears well, Alert In distress: None - HEENT Head: Normocephalic, Atraumatic Eyes: Normal Pupils: PERRL Fundascopic: Normal Ears: Normal External canal: Normal Tympanic membrane: Normal Sinus: Normal Nasal: Normal Mouth/Lips: Normal. No: Angioedema Mucous membranes: Normal Pharynx: Normal. No: Uvular edema, Potential airway comprom. Neck: Normal, Supple. No: Lymphadenopathy, Meningismus - Respiratory Respiratory status: No respiratory distress Chest status: Nontender. No: Accessory muscle use Breath sounds: Normal. No: Rales, Rhonchi, Stridor, Wheezing Chest palpation: Normal - Cardiovascular Rhythm: Regular Heart sounds: Normal auscultation Murmur: No - Abdominal Inspection: Normal Distension: No distension Bowel sounds: Normal Tenderness: Nontender. No: Tender, McBurney's point, Hills's sign, Guarding, Rebound Organomegaly: No organomegaly - Back Back: Normal, Nontender. No: Deformity/step-off, CVA tenderness, Vertebra tenderness - Extremities General upper extremity: Normal inspection, Nontender, Normal color, Normal ROM, Normal temperature General lower extremity: Normal inspection, Nontender, Normal color, Normal ROM, Normal temperature, Normal weight bearing. No: Mignon's sign - Neurological Neuro grossly intact: Yes Cognition: Normal Orientation: AAOx4 [place] Coma Scale Eye Opening: Spontaneous [place] Coma Scale Verbal: Oriented Ace Coma Scale Motor: Obeys Commands Ace Coma Scale Total: 15 Speech: Normal Cranial nerves: Normal Cerebellar coordination: Normal Motor strength normal: LUE, RUE, LLE, RLE Additional motor exam normals: Equal janitorial assistant. No: Pronator drift Sensory: Normal - Psychological Associated symptoms: Normal affect, Normal mood - Skin Skin Temperature: Warm Skin Moisture: Dry Skin Color: Normal Course - Re-evaluation Re-evalutation: Impression: headache, back pain, UTI. Patient is feeling much better. Headache has resolved. Will send home with ABx for UTI. Patient agrees with the plan. - Vital Signs Vital signs: Temp Pulse Resp BP Pulse Ox 98.2 F 89 14 131/86 H 100 03/07/19 19:14 03/07/19 19:14 03/07/19 19:14 03/07/19 19:14 03/07/19 19:14 - Laboratory Result Diagrams: 03/07/19 16:15 03/07/19 16:15 Laboratory results interpreted by me: 03/07/19 03/07/19 16:15 17:20 WBC 11.2 H Hgb 10.2 L Hct 31.7 L MCV 66 L MCH 21.3 L RDW 18.5 H Absolute Neuts (auto) 8.6 H Urine Blood SMALL H Leukocyte Esterase Rfl TRACE H Discharge - Discharge Clinical Impression: Headache Qualifiers: Headache type: unspecified Headache chronicity pattern: acute headache Intractability: not intractable Qualified Code(s): R51 - Headache UTI (urinary tract infection) Qualifiers: Urinary tract infection type: acute cystitis Hematuria presence: without tray turia Qualified Code(s): N30.00 - Acute cystitis without hematuria Low back pain Qualifiers: Chronicity: acute Back pain laterality: right Sciatica presence: without sciatica Qualified Code(s): M54.5 - Low back pain Condition: Stable Disposition: HOME, SELF-CARE Instructions: Headache ([facility]), Nitrofurantoin ([facility]), Urinary Tract Infection ([facility]) Additional Instructions: Complete antibiotics. Push fluids. Decrease caffeine intake. Return if w orsening symptoms. Follow-up with primary care physician without fail. Prescriptions: Butalb/Acetaminophen/Caffeine [Fioricet (50-325-40 mg) Tablet] 1 tab PO Q6H PRN #15 tab PRN Reason: Nitrofurantoin/Nitrofuran Mac [Macrobid 100 mg Capsule] 1 tab PO BID #14 capsule Forms: Return to Work Referrals: [facility] [Outside] - Follow up in 1 week
[2019-03-07] MEDS ORDERED: KETOROLAC TROMETHAMINE INJ/PF 30 MG/1 ML SDV IV ONE (18:55)
[2019-03-07] MEDS ORDERED: NITROFURANTOIN MONOHYD/M-CRYST 100 MG CAPSULE PO ONE (18:56)
[2019-03-07 19:21] VITALS: BP 131/86
== END 2019-03-07 19:14 | disposition home or self-care (01) ==
LOC: ER 15:47
DX: N30.00 Acute cystitis without hematuria (principal); R51 Headache; M54.5 Low back pain; Z88.0 Allergy status to penicillin
CPT/HCPCS: 99283; 96361; 96374; 96375; 36415; 87086; 85025; 81025; 87088; 80053; 81001; 87186; J3490 ×2; J1885; J2765; J7030; J8499

== ENCOUNTER 2019-09-18 17:44 | Emergency (ER) | payer SELFPAY ==
[2019-09-18 17:55] VITALS: BP 133/77
[2019-09-18] MEDS ORDERED: NORMAL SALINE 1000 ML 1,000 ML IV ONE (18:26)
--- NOTE | 2019-09-18 18:28 | ER Document Report ---
ED Medical Screen (RME) - General Chief Complaint: Back Pain Stated Complaint: BACK PAIN Time Seen by Provider: 09/18/19 18:23 Mode of Arrival: Ambulatory Information source: Patient Notes: 28-year-old female presented to ED for complaint of body aches abdominal pain and cramping backaches cloudy urine and dark urine states she knows she dehydrated. She does have lupus and thinks this might be a lupus flareup. She does smoke a pack a day does not drink or do any drugs. She has had a bilateral tubal ligation but states she feels like she can feel movement in her abdomen. I did explain to her that if she has some gas in her stomach sometimes it does feel like that. Will get a test to ensure whether she is or is not . I have greeted and performed a rapid initial assessment of this patient. A comprehensive ED assessment and evaluation of the patient, analysis of test results and completion of medical decision making process will be conducted by an additional ED providers. TRAVEL OUTSIDE OF THE [place] IN LAST 30 DAYS: No - Related Data Allergies/Adverse Reactions: Penicillins Allergy (Verified 03/07/19 16:03) Past Medical History Neurological Medical History: Reports: Hx Migraine Renal/ Medical History: Denies: Hx Peritoneal Dialysis GI Medical History: Reports: Hx Gastroesophageal Reflux Disease Musculoskeltal Medical History: Reports Hx Arthritis - RA Psychiatric Medical History: Reports: Hx Bipolar Disorder, Hx Depression - gestational Past Surgical History: Reports: Hx Tubal Ligation - Immunizations Immunizations up to date: Yes Hx Diphtheria, Pertussis, Tetanus Vaccination: Yes Physical Exam - Vital signs Vitals: Temp Pulse Resp BP Pulse Ox 98.6 F 112 H 16 133/77 H 100 09/18/19 17:53 09/18/19 17:53 09/18/19 17:53 09/18/19 17:53 09/18/19 17:53 Course - Vital Signs Vital signs: Temp Pulse Resp BP Pulse Ox 98.6 F 112 H 16 133/77 H 100 09/18/19 17:53 09/18/19 17:53 09/18/19 17:53 09/18/19 17:53 09/18/19 17:53
[2019-09-18 18:58] LABS: ABSOLUTE BASOPHILS # (AUTO) 0.1 10^3/uL (0.0-0.2); ABSOLUTE EOSINOPHILS # (AUTO) 0.1 10^3/uL (0.0-0.6); ABSOLUTE LYMPHOCYTES (AUTO) 1.8 10^3/uL (0.5-4.7); ABSOLUTE MONOCYTES (AUTO) 0.4 10^3/uL (0.1-1.4); ABSOLUTE NEUT (AUTO) 6.7 10^3/uL (1.7-8.2); BASOPHILS % (AUTO) 0.7 % (0-2); EOSINOPHILS % (AUTO) 1.6 % (0-6); HEMATOCRIT 34.2 % (36.0-47.0); HEMOGLOBIN 10.8 g/dL (12.0-15.5); LYMPHOCYTES % (AUTO) 19.4 % (13-45); MEAN CORPUSCULAR HEMOGLOBIN 21.1 pg (27.0-33.4); MEAN CORPUSCULAR HGB CONC 31.7 g/dL (32.0-36.0); MEAN CORPUSCULAR VOLUME 67 fl (80-97); MONOCYTES % (AUTO) 4.5 % (3-13); PLATELET COUNT 299 10^3/uL (150-450); RED BLOOD COUNT 5.14 10^6/uL (3.72-5.28); RED CELL DISTRIBUTION WIDTH 19.5 % (11.5-14.0); SEGMENTED NEUTROPHILS % (AUTO) 73.8 % (42-78); TOTAL CELLS COUNTED % (AUTO) 100 %; WHITE BLOOD COUNT 9.1 10^3/uL (4.0-10.5)
[2019-09-18 19:18] LABS: ALBUMIN 4.4 g/dL (3.5-5.0); ALKALINE PHOSPHATASE 75 U/L (38-126); ANION GAP 5 (5-19); ASPARTATE AMINO TRANSFERASE 19 U/L (14-36); BILIRUBIN,TOTAL 0.4 mg/dL (0.2-1.3); BLOOD UREA NITROGEN 10 mg/dL (7-20); CALCIUM 9.5 mg/dL (8.4-10.2); CARBON DIOXIDE 24 mmol/L (22-30); CHLORIDE 108 mmol/L (98-107); CREATINE KINASE 62 U/L (30-135); GLUCOSE 95 mg/dL (75-110); POTASSIUM 4.3 mmol/L (3.6-5.0); TOTAL PROTEIN 7.9 g/dL (6.3-8.2)
[2019-09-18 19:23] LABS: APPEARANCE,URINE CLOUDY; BILIRUBIN,URINE NEGATIVE (NEGATIVE); COLOR,URINE AMBER; GLUCOSE, URINE NEGATIVE (NEGATIVE); KETONES,URINE TRACE mg/dL (NEGATIVE); LEUKOCYTE ESTERASE,URINE LARGE (NEGATIVE); NITRITE,URINE POSITIVE (NEGATIVE); PROTEIN,URINE 30 mg/dL (NEGATIVE); URINE SPECIFIC GRAVITY 1.025; UROBILINOGEN,URINE NEGATIVE mg/dL (<2.0)
== END 2019-09-18 23:55 | disposition left against medical advice (07) ==
LOC: ER 17:44
DX: R10.9 Unspecified abdominal pain (principal); R39.89 Other symptoms and signs involving the genitourinary system; F17.200 Nicotine dependence, unspecified, uncomplicated; Z87.19 Personal history of other diseases of the digestive system; Z98.51 Tubal ligation status; Z88.0 Allergy status to penicillin; Z53.20 Procedure and treatment not carried out because of patient's decision for unspecified reasons
CPT/HCPCS: 36415; 80053; 81001; 82550; 83690; 84702; 85025; 87086; 87088; 87186; 99281